=== PATIENT | male | born 1945 | race Caucasian/White ===

== ENCOUNTER 2017-05-13 16:41 | Inpatient (IN) ==
--- NOTE | 2017-05-13 16:55 | Emergency Department Note ---
Disposition Clinical Impression: Abdominal pain Qualifiers: Abdominal location: periumbilical Qualified Code(s): R10.33 - Periumbilical pain Disposition: Still a Patient Condition: Good [facility] [[facility]] - Forms: ED Satisfaction Letter, Work/School Release Time of Disposition: 19:08 Abdominal Pain HPI - General Chief Complaint: ED Abdominal Pain Stated Complaint: N/V/D Time Seen by Provider: 05/13/17 16:44 Source: patient, EMS Mode of arrival: EMS Limitations: no limitations Nursing Notes Reviewed: Yes Vital Signs Reviewed: Yes - History of Present Illness HPI Narrative: 72-year-old male history of coronary artery disease, stent on Plavix, hyperlipidemia, hypertension, history of diverticulitis who presents to the ER from the [facility] due to concern for possible ileus versus obstruction. Patient reports that he was treated for diverticulitis roughly 2-1/2 weeks ago. Reports that he had pain on the left side as well as diarrhea. He had a CT at that time demonstrating diverticulitis. He reports that he was on antibiotics and continued and finished a ten-day course with improvement of his symptoms. Reports on Monday he started developing diarrhea again as well as central abdominal pain. States since this time that he has had vomiting with food aversion. Reports that he only throws up when he tries to eat. Denies any fevers, chest pain, shortness of breath. He reports no bowel movement today after previously having diarrhea. No other complaints. Pt Subjective Complaint: abdominal pain Onset (ago): day(s) Consistency: constant Location: periumbilical Pain Scale: 0 Radiation: none Migration to: no migration Improves with: nothing Worsens with: nothing Associated symptoms: Reports: nausea, vomiting, diarrhea. Denies: fever, dysuria, hematuria Treatments prior to arrival: none - Related Data Allergies Allergy/AdvReac Type Severity Reaction Status Date / Time tree nut Allergy Anaphylaxis Verified 05/13/17 16:42 All systems ED: reviewed and negative except as stated. Constitutional: Denies: fever Gastrointestinal: Reports: abdominal pain, nausea, vomiting, diarrhea. Denies: constipation Genitourinary: Denies: dysuria, hematuria Abdominal Pain PMH - Past Medical History Medical history: Reports: coronary artery disease, GERD, hyperlipidemia, hypertension, myocardial infarction, thyroid disease, TIA Male Surgical History: Reports: angioplasty/stent, cataract, cholecystectomy Psychiatric history: Reports: no psych history - Social History Smoking status: Former smoker Alcohol use: Reports: occasionally Drug use: Reports: none Physical Exam - General Limitations: no limitations General appearance: alert, in no apparent distress - Head Head exam: atraumatic - Eye Eye exam: Present: normal appearance - ENT ENT exam: normal exam - Neck Neck exam: Present: normal inspection - Chest Chest inspection: Present: normal inspection, symmetric chest wall rise - Respiratory Respiratory exam: Present: normal lung sounds bilaterally - Cardiovascular Cardiovascular exam: Present: regular rate, normal rhythm, normal heart sounds - Abdominal Exam Abdominal exam: Present: soft, tenderness (Mild periumbilical tenderness), distention. Absent: guarding, rigidity - Extremities Exam Extremities exam: Present: normal inspection, full ROM - Expanded Upper Extremity Exam Shoulder exam: Present: normal inspection, full ROM Arm exam: Present: normal inspection, full ROM Elbow exam: Present: normal inspection, full ROM Forearm/Wrist exam: Present: normal inspection, full ROM Hand exam: Present: normal inspection, full ROM - Expanded Lower Extremity Exam Hip/Pelvis exam: Present: normal inspection, full ROM Upper leg exam: Present: normal inspection, full ROM Knee exam: Present: normal inspection, full ROM Lower leg exam: Present: normal inspection, full ROM Ankle exam: Present: normal inspection, full ROM Foot/toe exam: Present: normal inspection, full ROM - Skin Skin exam: Present: warm, dry Course Course Narrative: Patient seen and examined. I reviewed his CT report from the previous facility which was interpreted as "nonspecific mild dilation of the fluid-filled small bowel loop in the right lower abdomen. No transition point or findings to suggest obstruction. Fluid-filled small bowel and colon, raising the possibility of enteritis/diarrheal illness. Mild colonic diverticulosis" we will repeat labs here, given IV fluids and reassess. Vital Signs Temperature 98.6 F 05/13/17 16:44 Pulse Rate 88 05/13/17 16:44 Respiratory Rate 18 05/13/17 16:44 Blood Pressure 127/111 05/13/17 16:44 O2 Sat by Pulse Oximetry 93 05/13/17 16:44 Temperature 98.6 F 05/13/17 16:44 Pulse Rate 100 05/13/17 18:45 Respiratory Rate 18 05/13/17 18:45 Blood Pressure 120/78 05/13/17 18:45 O2 Sat by Pulse Oximetry 94 05/13/17 18:45 Oxygen Delivery Oxygen Delivery Room Air Abdominal Pain - MDM Narrative Medical decision making narrative: 72-year-old male presents to the ER from the [facility] due to concern for obstruction. Recent treatment of diverticulitis 2-1/2 weeks ago. Reports his symptoms improved. He started having pain again on Monday. Reports multiple episodes of vomiting whenever he tries to eat anything. States he was having diarrhea but no bowel movement since yesterday now. His abdomen is distended on exam without peritoneal features. He had a noncontrast CT scan at the [facility] with concern for potential obstruction versus viral ileus. Labs repeated here. We will repeat the CT with oral contrast. She signed out the compliance consultant pending imaging results. - Lab Data Lab results reviewed: Yes I reviewed the patient's lab results. Result diagrams: 05/13/17 16:52 05/13/17 16:52 Lab Results 05/13/17 05/13/17 05/13/17 Range/Units 16:52 16:52 16:52 WBC 7.2 (4.3-11.1) K/mcL RBC 4.66 (4.19-5.50) M/mcL Hgb 14.1 (12.9-16.9) g/dL Hct 43.3 (37.5-50.1) % MCV 92.9 (83.0-100.0) fL MCH 30.3 (28.0-33.3) pg MCHC 32.6 (31.6-35.5) g/dL RDW 12.9 (11.5-14.5) % Plt Count 183 (140-400) K/mcL MPV 11.0 (9.4-12.4) fL Immature Gran % 0.1 (0-4) % Seg Neutrophils % 64.1 % Lymphocytes % 15.4 % Monocytes % 17.6 % Eosinophils % 2.5 % Basophils % 0.3 % Neutrophils # 4.6 (1.6-8.9) K/mcL Lymphocytes # 1.1 (0.6-4.6) K/mcL Monocytes # 1.3 (0.0-1.3) K/mcL Eosinophils # 0.2 (0.0-0.6) K/mcL Basophils # 0.0 (0.0-0.2) K/mcL PT 12.7 H (9.4-12.1) Seconds INR 1.2 Sodium 139 (136-145) mEq/L Potassium 4.1 (3.5-5.1) mEq/L Chloride 109 H (98-107) mEq/L Carbon Dioxide 23 (23-29) mEq/L BUN 23 (8-23) mg/dL Creatinine 1.44 H (0.70-1.30) mg/dL Est GFR ( Amer) 58 L (> 60) Est GFR (Non-Af Amer) 48 L (> 60) BUN/Creatinine Ratio 16 (6-26) Glucose 119 H (70-105) mg/dL Calculated Osmolality 293 (280-300) Calcium 9.3 (8.6-10.3) mg/dL Total Bilirubin 1.2 H (0.3-1.0) mg/dL Direct Bilirubin 0.2 (0.0-0.2) mg/dL Indirect Bilirubin 1.0 (0.0-1.2) mg/dL AST 12 L (13-39) Units/L ALT 17 (7-52) Units/L Alkaline Phosphatase 57 (34-104) Units/L Serum Total Protein 6.4 (6.4-8.9) g/dL Albumin 3.8 (3.5-5.7) g/dL Globulin 2.6 (2.4-3.5) g/dL Albumin/Globulin Ratio 1.5 (1.1-2.2) Lipase 10 L (11-82) Units/L Attestation Statement - Attestation Attestation: I, Juan Pablo Samuel DO, examined this patient [id number] and my medical decision-making was reviewed with Dr. Murray Kraft, Resident Physician. I agree with the documented findings, disposition and treatment plan as described except to the extent set forth below. Please see my progress notes for details. 72-year-old male presents to emergency room for evaluation of possible ileus. Patient seen at the outside hospital for similar symptoms today. He was recently diagnosed with diverticulitis and treated symptomatically at home with antibiotics. The last several days patient still had persistent abdominal discomfort. Last 24 hours he has noticed significant nausea and vomiting and inability to tolerate by mouth food. Every time he eats E follicular cysts are. Patient's abdomen is slightly distended. He has had diarrhea up to the last 12+ hours. He has not had any bowel or gas sinceexam this morning. Patient denies any other significant medical issues at this time. No new medications or. Patient has not had any trauma or injury otherwise. Currently denying fevers chills chest pain shortness of breath headache or vision change. He has had intermittent nausea vomiting and diarrhea. CT imaging and labs are from outside hospital but they were repeated here in our emergency room. Lungs are clear heart is regular. Patient moves all portion is not has no other acute pathology except for some mild abdominal discomfort and distention. CT with oral contrast will be completed here in our emergency room and then disposition will be determined. Patient otherwise rested comfortably in the bed requiring no pain medication. See detailed documentation of physical exam, medical intervention, medical decision-making and disposition of the resident physician's note 1900 Patient is still waiting for CT imaging to be resulted. Patient was signed out to the nighttime physician Dr. Mercado. We will complete the course of care
[2017-05-13 17:00] LABS: Basophils % 0.3 %; Eosinophils # 0.2 K/mcL (0.0-0.6); Eosinophils % 2.5 %; Hematocrit 43.3 % (37.5-50.1); Hemoglobin 14.1 g/dL (12.9-16.9); Immature Granulocytes % 0.1 % (0-4); Lymphocytes # 1.1 K/mcL (0.6-4.6); Lymphocytes % 15.4 %; Mean Corpuscular HGB Conc 32.6 g/dL (31.6-35.5); Mean Corpuscular Hemoglobin 30.3 pg (28.0-33.3); Mean Corpuscular Volume 92.9 fL (83.0-100.0); Monocytes # 1.3 K/mcL (0.0-1.3); Monocytes % 17.6 %; Neutrophils # 4.6 K/mcL (1.6-8.9); Platelet Count 183 K/mcL (140-400); Red Blood Count 4.66 M/mcL (4.19-5.50); Red Cell Distribution Width 12.9 % (11.5-14.5); Segmented Neutrophils % 64.1 %
[2017-05-13 17:05] LABS: INR 1.2; Prothrombin Time 12.7 Seconds (9.4-12.1)
[2017-05-13 17:15] LABS: Albumin 3.8 g/dL (3.5-5.7); Albumin/Globulin Ratio 1.5 (1.1-2.2); Bilirubin,Direct 0.2 mg/dL (0.0-0.2); Bilirubin,Total 1.2 mg/dL (0.3-1.0); Calcium 9.3 mg/dL (8.6-10.3); Globulin 2.6 g/dL (2.4-3.5); Potassium 4.1 mEq/L (3.5-5.1); Total Protein 6.4 g/dL (6.4-8.9)
[2017-05-13] MEDS ORDERED: Ondansetron 4 MG/2 ML VIAL IVP ONE (17:33)
[2017-05-13] MEDS ORDERED: *HR* Promethazine 25 MG/ML VIAL IVP ONE (18:47)
[2017-05-13] MEDS ORDERED: 0.9 % Sodium Chloride 500 ML IVC ONE (19:39)
--- NOTE | 2017-05-13 21:04 | Emergency Department Note ---
Disposition Clinical Impression: Colitis, ABDIRIZAK (acute kidney injury) Abdominal pain Qualifiers: Abdominal location: periumbilical Qualified Code(s): R10.33 - Periumbilical pain Intractable nausea and vomiting Qualifiers: Vomiting type: unspecified Qualified Code(s): R11.2 - Nausea with vomiting, unspecified Disposition: Admitted As Inpatient Condition: Fair Time of Disposition: 21:04 Abdominal Pain HPI - General Chief Complaint: ED Abdominal Pain Stated Complaint: N/V/D Time Seen by Provider: 05/13/17 16:44 Source: patient, EMS Mode of arrival: EMS Nursing Notes Reviewed: Yes Vital Signs Reviewed: Yes - History of Present Illness Pt Subjective Complaint: abdominal pain Location: periumbilical Pain Scale: 0 Migration to: no migration Improves with: nothing Worsens with: nothing Associated symptoms: Reports: nausea, vomiting, diarrhea. Denies: fever, dysuria, hematuria - Related Data Allergies Allergy/AdvReac Type Severity Reaction Status Date / Time tree nut Allergy Anaphylaxis Verified 05/13/17 16:42 Constitutional: Denies: fever Gastrointestinal: Reports: abdominal pain, nausea, vomiting, diarrhea. Denies: constipation Genitourinary: Denies: dysuria, hematuria Abdominal Pain PMH - Past Medical History Medical history: Reports: coronary artery disease, GERD, hyperlipidemia, hypertension, myocardial infarction, thyroid disease, TIA Male Surgical History: Reports: angioplasty/stent, cataract, cholecystectomy Psychiatric history: Reports: no psych history - Social History Smoking status: Former smoker Alcohol use: Reports: occasionally Drug use: Reports: none Physical Exam - General Limitations: no limitations General appearance: alert, in no apparent distress Course Course Narrative: Flea care was signed out from Dr. Samuel and Dr. Kraft please see their documentation for history physical examination additional plan, patient is 72- year-old male with colitis, CT scan with IV and oral contrast which she was able to partially tolerate shows demonstration of liquid stool throughout the colon colitis but no evidence of diverticulitis or surgical pathology perforation or small bowel obstruction, given the patient's age and comorbidities, CAD, 2 days decreased by mouth intake, acute renal insufficiency , and intractable nausea and vomiting the care will be admission to the hospital Dr. Lara for rehydration, and diarrheal illness. Vital Signs Temperature 98.6 F 05/13/17 16:44 Pulse Rate 88 05/13/17 16:44 Respiratory Rate 18 05/13/17 16:44 Blood Pressure 127/111 05/13/17 16:44 O2 Sat by Pulse Oximetry 93 05/13/17 16:44 Temperature 98.6 F 05/13/17 16:44 Pulse Rate 100 05/13/17 18:45 Respiratory Rate 12 05/13/17 21:00 Blood Pressure 130/78 05/13/17 21:00 O2 Sat by Pulse Oximetry 94 05/13/17 18:45 Oxygen Delivery Oxygen Delivery Nasal Cannula Abdominal Pain - Differential Diagnosis Differential Diagnosis: Likely: abdominal pain non-specific, acute appendicitis , diverticulitis - Medical Records Medical records reviewed: Yes I reviewed the patient's medical records. - Lab Data Lab results reviewed: Yes I reviewed the patient's lab results. Result diagrams: 05/13/17 16:52 05/13/17 16:52 Lab Results 05/13/17 05/13/17 05/13/17 Range/Units 16:52 16:52 16:52 WBC 7.2 (4.3-11.1) K/mcL RBC 4.66 (4.19-5.50) M/mcL Hgb 14.1 (12.9-16.9) g/dL Hct 43.3 (37.5-50.1) % MCV 92.9 (83.0-100.0) fL MCH 30.3 (28.0-33.3) pg MCHC 32.6 (31.6-35.5) g/dL RDW 12.9 (11.5-14.5) % Plt Count 183 (140-400) K/mcL MPV 11.0 (9.4-12.4) fL Immature Gran % 0.1 (0-4) % Seg Neutrophils % 64.1 % Lymphocytes % 15.4 % Monocytes % 17.6 % Eosinophils % 2.5 % Basophils % 0.3 % Neutrophils # 4.6 (1.6-8.9) K/mcL Lymphocytes # 1.1 (0.6-4.6) K/mcL Monocytes # 1.3 (0.0-1.3) K/mcL Eosinophils # 0.2 (0.0-0.6) K/mcL Basophils # 0.0 (0.0-0.2) K/mcL PT 12.7 H (9.4-12.1) Seconds INR 1.2 Sodium 139 (136-145) mEq/L Potassium 4.1 (3.5-5.1) mEq/L Chloride 109 H (98-107) mEq/L Carbon Dioxide 23 (23-29) mEq/L BUN 23 (8-23) mg/dL Creatinine 1.44 H (0.70-1.30) mg/dL Est GFR ( Amer) 58 L (> 60) Est GFR (Non-Af Amer) 48 L (> 60) BUN/Creatinine Ratio 16 (6-26) Glucose 119 H (70-105) mg/dL Calculated Osmolality 293 (280-300) Calcium 9.3 (8.6-10.3) mg/dL Total Bilirubin 1.2 H (0.3-1.0) mg/dL Direct Bilirubin 0.2 (0.0-0.2) mg/dL Indirect Bilirubin 1.0 (0.0-1.2) mg/dL AST 12 L (13-39) Units/L ALT 17 (7-52) Units/L Alkaline Phosphatase 57 (34-104) Units/L Serum Total Protein 6.4 (6.4-8.9) g/dL Albumin 3.8 (3.5-5.7) g/dL Globulin 2.6 (2.4-3.5) g/dL Albumin/Globulin Ratio 1.5 (1.1-2.2) Lipase 10 L (11-82) Units/L - Radiology Data Radiology results reviewed: Yes I reviewed the patient's radiology results. Abdomen/Pelvis CT 05/13/17 19:00 IMPRESSION: 1. Liquefied material is seen throughout the colon. Fluid-filled nondilated loops of small bowel are also noted. Findings are suggestive of underlying diarrheal disease or enterocolitis. 2. No evidence of small bowel obstruction. 3. No evidence of acute appendicitis. 4. Benign-appearing bilateral renal cysts. 5. Small hiatal hernia. 6. Osteopenia. Age-indeterminate compression fractures of T10 and L2 vertebral bodies with approximate 25% loss of vertebral body height. 7. Nonspecific sclerosis in the left acetabulum could represent benign bone islands. D/ / 05/13/2017 19:37:58 Benedicto Hardy MD / nika Interpreting Provider: Benedicto Hardy MD Attestation Statement - Attestation Attestation: I, Neftaly Mercado MD, personally evaluated this patient and discussed their management with the resident physician. I reviewed the resident's note and agree with the documented findings, medical decision making, and plan of care. This patient was signed out at shift change from Dr. Kraft and Dr. Samuel. Please refer to their notes for complete details of the history and physical examination. Patient recently treated for diverticulitis and finished antibiotics last week. Presents complaining of 3 day history of diarrhea which she describes as yellow and watery. The diarrhea is not foul smelling and there has been no blood in the diarrhea. He also complains of some diffuse crampy abdominal pain as well as some nausea and vomiting. No fever. On examination patient is a well-developed obese elderly male in no acute distress. He is alert and oriented 3. There is no cyanosis or diaphoresis. Breath sounds are equal bilaterally. Heart regular. Abdomen soft with increased bowel sounds. Mild diffuse tenderness with no guarding or rebound tenderness. Labs reviewed. CT shows enterocolitis but no obstruction. The hospitalist, Dr. Lara, was consulted and accepted admission of the patient.
[2017-05-13] MEDS ORDERED: *HR* Promethazine 25 MG/ML VIAL IVP PRN (23:34)
[2017-05-13] MEDS ORDERED: Naloxone 0.4 MG/ML INJ IVP PRN (23:34)
[2017-05-13] MEDS ORDERED: Ondansetron 4 MG/2 ML VIAL IVP PRN (23:34)
--- NOTE | 2017-05-13 23:43 | Internal Med History&Physical ---
Date of Encounter: 05/14/17 Time of Encounter: 23:39 Assessment and Plan (1) Colitis Current visit: Yes Status: Acute Enterocolitis seen on CT exam Patient [facility] and [facility] He currently is not having severe abdominal pain associated with this colitis, stable vitals I will maintain an nothing by mouth diet at this time Start IV Cipro and Flagyl Zofran and Phenergan for nausea as needed (2) Intractable nausea and vomiting Current visit: Yes Status: Acute Intractable nausea and vomiting, likely secondary to colitis Although I was initially concerned about the possibility of dehydration due to the patient's ABDIRIZAK, on clinical exam the patient does appear volume overloaded, and does have pulmonary congestion on chest x-ray I have opted to withhold maintenance fluid at this time to avoid the possibility of worsening hydration status I will provide Zofran and Phenergan as needed for nausea Qualifiers: Vomiting type: unspecified Qualified Code(s): R11.2 - Nausea with vomiting , unspecified (3) ABDIRIZAK (acute kidney injury) Current visit: Yes Status: Acute Elevated creatinine unknown baseline, ABDIRIZAK versus CKD Appears volume overloaded at this time Avoid IV hydration, reassess in the morning Avoid nephrotoxic agents (4) Atelectasis of both lungs Current visit: Yes Status: Acute Currently respiratory status is appropriate Likely secondary to poor inspiratory effort in setting of abdominal pain I will continue to monitor for possibility of emerging pneumonia (5) CAD (coronary artery disease) Current visit: No Status: Chronic CAD s/p stents Patient currently has no chest pain, however appears to have fluid overload and vascular congestion TTE in the AM Qualifiers: Coronary Disease-Associated Artery/Lesion type: [place] artery [place] vs. transplanted heart: [place] heart Associated angina: without angina Qualified Code(s): I25.10 - Atherosclerotic heart disease of [place] coronary artery without angina pectoris (6) HTN (hypertension) Current visit: Yes Status: Acute Continue home meds Qualifiers: Hypertension type: essential hypertension Qualified Code(s): I10 - Essential (primary) hypertension (7) HLD (hyperlipidemia) Current visit: Yes Status: Acute Continue statin Qualifiers: Hyperlipidemia type: unspecified Qualified Code(s): E78.5 - Hyperlipidemia , unspecified (8) DVT prophylaxis Current visit: Yes Status: Acute sq heparin Internal Medicine - H&P: HPI Chief complaint: Nausea and vomiting Admitted From: Emergency Dept Plans for Post Hospital Care: Home History of present illness: Mr. Gill is a 72 year old male with history of CAD status post stents, hyperlipidemia, hypertension, diverticulitis who presents to the ED from [facility] due to abdominal pain, nausea and vomiting. The patient was seen and treated for acute diverticulitis approximately 2.5 weeks ago at the [facility]. He says that he did 10 day course of 2 antibiotics which she does not know the name to and he seemed to get better. Then at approximately 9 PM on this past Monday the patient started developing severe watery diarrhea that was explosive in nature. He said he had about 8-16 episodes of this per night. He denies any blood, and since there is a yellow mucousy appearance. Then last night he began vomiting as well. He said that this is worsened by food or water. He has not been able to keep any food or water down. He says that there is been no blood in his vomit or his diarrhea. He also denies any fevers , chills, sweats. He does say that he feels that his abdomen has been distended and he has been extremely gassy. Although he is not having consistent or severe pain, he says that when he does have pain it is primarily located in his upper left and lower left abdomen. Nothing seems to help or make this issue any worse. Significantly, the patient does admit that he had a colonoscopy in the middle of this past March at which time they removed 2 polyps. He says that he feels like most this problem started around that time. He has not had any chest pain, shortness of breath. He denies any other acute complaints. Past Med Surg Social Fam HX - Past Medical History Medical history: coronary artery disease, GERD, hyperlipidemia, hypertension, myocardial infarction, thyroid disease, TIA Psychiatric history: no psych history - Social History Smoking Status: Former smoker Smokeless Tobacco Status: No Alcohol use: occasionally Drug use: none Internal Medicine - H&P: Meds Bicalutamide 50 PO DAILY 05/14/17 [History] 3 Allergy/AdvReac Type Severity Reaction Status Date / Time tree nut Allergy Anaphylaxis Verified 05/13/17 16:42 All Systems PM: A 10-system review of systems was performed and is negative for pertinent findings except as documented above in the HPI. Review of systems: CONSTITUTIONAL: No weight loss, fever, chills, weakness or fatigue. HEENT: Eyes: No visual loss, blurred vision, double vision or yellow sclerae. SKIN: No rash or itching. CARDIOVASCULAR: No chest pain, chest pressure or chest discomfort. No palpitations or edema. RESPIRATORY: No shortness of breath, cough or sputum. GASTROINTESTINAL: Admits to abdominal pain, distention, nausea vomiting diarrhea GENITOURINARY: Burning on urination. NEUROLOGICAL: No headache, dizziness, syncope, paralysis, ataxia, numbness or tingling in the extremities. No change in bowel or bladder control. MUSCULOSKELETAL: No muscle, back pain, joint pain or stiffness. HEMATOLOGIC: No anemia, bleeding or bruising. LYMPHATICS: No enlarged nodes. No history of splenectomy. PSYCHIATRIC: No history of depression or anxiety. ENDOCRINOLOGIC: No reports of sweating, cold or heat intolerance. No polyuria or polydipsia. - Constitutional Vitals: Temp Pulse Resp BP Pulse Ox 98.8 F 84 16 110/71 95 05/13/17 21:23 05/13/17 21:23 05/13/17 21:23 05/13/17 21:23 05/13/17 21:23 Exam: Gen.: Vitals noted. No acute distress. AAOx3 HEENT: PERRL/EOMI, oropharynx clear, Normocephalic, atraumatic Neck: Supple. No adenopathy. Cardiac: RRR, no murmur, +S1/S2 Pulmonary: Diffuse bibasilar crackles on inspiration, no wheezes Abdomen: Moderately distended, no rigidity, no rebound tenderness or generalized tenderness to palpation Back: Nontender throughout. MSK: ROM intact, no joint swelling noted Extremities: no BLE edema, nontender calf, no cyanosis or clubbing Neuro: A&Ox3, moves all extremities, no focal deficits Psych: Appropriate mood and behavior Internal Med - H&P Results - Labs CBC & Chem 7: 05/13/17 16:52 05/13/17 16:52
[2017-05-13] MEDS ORDERED: 0.9 % Sodium Chloride 1,000 ML IVC SCH (23:45)
[2017-05-14 05:50] LABS: Hematocrit 40.3 % (37.5-50.1); Mean Corpuscular HGB Conc 32.3 g/dL (31.6-35.5); Mean Corpuscular Hemoglobin 30.2 pg (28.0-33.3); Mean Corpuscular Volume 93.5 fL (83.0-100.0); Mean Platelet Volume 11.9 fL (9.4-12.4); Platelet Count 150 K/mcL (140-400); Red Blood Count 4.31 M/mcL (4.19-5.50); Red Cell Distribution Width 13.1 % (11.5-14.5)
[2017-05-14 06:07] LABS: BUN/Creatinine Ratio 16 (6-26); Blood Urea Nitrogen 20 mg/dL (8-23); Calcium 8.8 mg/dL (8.6-10.3); Carbon Dioxide 22 mEq/L (23-29); Chloride 112 mEq/L (98-107); Glucose 107 mg/dL (70-105); Osmolality,Calculated 295 (280-300); Potassium 3.8 mEq/L (3.5-5.1); Sodium 141 mEq/L (136-145); eGFR For African Americans > 60 (> 60); eGFR For Non-African Americans 54 (> 60)
[2017-05-14] MEDS: *HR* Heparin 5,000 UNIT/ML VIAL SQ SCH ×2 (06:19→17:12)
[2017-05-14] MEDS: MetroNIDAZOLE 500 MG/100 ML 500 MG/100 ML BAG IVPB SCH ×3 (10:12→23:43)
[2017-05-14] MEDS ORDERED: Bicalutamide 50 MG TABLET PO SCH (11:30)
--- NOTE | 2017-05-14 11:34 | Event Note ---
Date of Encounter: 05/14/17 Time of Encounter: 11:33 Patient was seen and examined. He was admitted overnight with diarrhea. Tested positive for C. difficile. Currently on Cipro and Flagyl. We will stop Cipro. Keep him on Flagyl. Continue with IV fluids. His blood pressure is marginal. Hold his beta lopez. He had some ABDIRIZAK as well on admission which is improving with IV fluids. We will continue IV fluids and decrease the rate to 100 mL an hour. He does have a history of coronary disease and I worry about volume overload.
[2017-05-14] MEDS: 0.9 % Sodium Chloride 1,000 ML IVC SCH ×2 (12:24→23:40)
[2017-05-14] MEDS: Aspirin Enteric Coated 81 MG Tablet PO SCH (12:27)
[2017-05-15 05:02] LABS: Basophils % 0.2 %; Eosinophils # 0.4 K/mcL (0.0-0.6); Eosinophils % 7.2 %; Hematocrit 36.3 % (37.5-50.1); Hemoglobin 11.5 g/dL (12.9-16.9); Immature Granulocytes % 0.4 % (0-4); Lymphocytes # 1.4 K/mcL (0.6-4.6); Lymphocytes % 26.3 %; Mean Corpuscular HGB Conc 31.7 g/dL (31.6-35.5); Mean Corpuscular Hemoglobin 29.7 pg (28.0-33.3); Mean Corpuscular Volume 93.8 fL (83.0-100.0); Mean Platelet Volume 11.8 fL (9.4-12.4); Monocytes # 0.9 K/mcL (0.0-1.3); Monocytes % 15.8 %; Neutrophils # 2.7 K/mcL (1.6-8.9); Platelet Count 144 K/mcL (140-400); Red Blood Count 3.87 M/mcL (4.19-5.50); Segmented Neutrophils % 50.1 %
[2017-05-15 05:22] LABS: BUN/Creatinine Ratio 12 (6-26); Blood Urea Nitrogen 15 mg/dL (8-23); Calcium 8.3 mg/dL (8.6-10.3); Carbon Dioxide 26 mEq/L (23-29); Chloride 110 mEq/L (98-107); Glucose 92 mg/dL (70-105); Magnesium 1.6 mg/dL (1.6-2.6); Osmolality,Calculated 290 (280-300); Potassium 3.8 mEq/L (3.5-5.1); Sodium 140 mEq/L (136-145); eGFR For African Americans > 60 (> 60); eGFR For Non-African Americans 55 (> 60)
[2017-05-15] MEDS: *HR* Heparin 5,000 UNIT/ML VIAL SQ SCH (05:46)
[2017-05-15 07:21] VITALS: BP 110/72
[2017-05-15] MEDS ORDERED: Magnesium Oxide 400 MG TABLET PO ONE (07:44)
--- NOTE | 2017-05-15 07:52 | Discharge Summary ---
Date of Encounter: 05/15/17 Time of Encounter: 07:49 - Discharge Diagnosis (1) C. difficile colitis Priority: Primary Status: Acute (2) Intractable nausea and vomiting Priority: Primary Status: Acute Qualifiers: Vomiting type: unspecified Qualified Code(s): R11.2 - Nausea with vomiting , unspecified (3) HTN (hypertension) Priority: Secondary Status: Acute Qualifiers: Hypertension type: essential hypertension Qualified Code(s): I10 - Essential (primary) hypertension (4) CAD (coronary artery disease) Priority: Secondary Status: Chronic Qualifiers: Coronary Disease-Associated Artery/Lesion type: [place] artery [place] vs. transplanted heart: [place] heart Associated angina: without angina Qualified Code(s): I25.10 - Atherosclerotic heart disease of [place] coronary artery without angina pectoris (5) HLD (hyperlipidemia) Priority: Secondary Status: Acute Qualifiers: Hyperlipidemia type: unspecified Qualified Code(s): E78.5 - Hyperlipidemia , unspecified - Discharge Medications Prescriptions: metroNIDAZOLE [Flagyl] 500 mg PO TID #24 tablet Home Medications: Aspirin [Lo-Dose Aspirin EC] 81 mg PO DAILY 05/14/17 [History] Cholecalciferol (Vitamin D3) [Vitamin D3] 2,000 unit PO DAILY 05/14/17 [History] Ciprofloxacin [Cipro] 500 mg PO BID 05/14/17 [History] Clopidogrel [Plavix] 75 mg PO DAILY 05/14/17 [History] Leuprolide Acetate 1 mg SQ [id number] 05/14/17 [History] Levothyroxine [Synthroid] 100 mcg PO DAILY 05/14/17 [History] Metoprolol Tartrate [Lopressor] 50 mg PO BID 05/14/17 [History] Omeprazole 20 mg PO DAILY 05/14/17 [History] Simvastatin [Zocor] 40 mg PO HS 05/14/17 [History] Terazosin HCl 2 mg PO HS 05/14/17 [History] metroNIDAZOLE [Flagyl] 500 mg PO TID #24 tablet 05/15/17 [Rx] Allergies/Adverse Reactions: 3 Allergy/AdvReac Type Severity Reaction Status Date / Time tree nut Allergy Anaphylaxis Verified 05/13/17 16:42 Procedures/tests Complete & Pending: Procedures Performed prior 72 hours Category Date Time Status EV echocardiogram Routine Y 05/14/17 01:14 Completed Date of admission: 05/13/17 20:48 Primary care physician: PCP AROLDO - Patient Status Disposition: Home, Self-Care Overall status at discharge: patient is progressing back to baseline - Discharge Instructions Instructions: Metronidazole (By mouth), Clostridium Difficile Infection (GEN) Follow Up With: AROLDO,PCP [Primary Care Provider] - 05/18/17 11:00 am Forms: ED Satisfaction Letter, Work/School Release - Diet and Activity Activity: increase activity as tolerated Diet: low salt diet Hospital course: Mr. Gill is a 72 year old male with history of CAD status post stents, hyperlipidemia, hypertension, diverticulitis who presents to the ED from [facility] due to abdominal pain, nausea and vomiting. The patient was seen and treated for acute diverticulitis approximately 2.[address] he suddenly started having significant watery diarrhea. He had about 8-16 loose stools episodes in 1 day. In the emergency department had a CT abdomen and pelvis which showed signs of enterocolitis. The patient was admitted to the hospitalist service and tested positive for C. difficile. We put the patient on IV Flagyl. He did well and on day of discharge she had no loose stools for the night prior and the morning of. He never had an elevation in his white count. He was hemodynamically stable throughout his stay. He tolerated diet. He was discharged to finish ten-day course of Flagyl. Follow up with his primary care physician. - Time Spent with Patient Total time spent providing and/or coordinating discharge services: Greater than 30 minutes - Constitutional Vitals: Temp Pulse Resp BP Pulse Ox 98.0 F 68 16 110/72 93 05/15/17 07:13 05/15/17 07:13 05/15/17 07:13 05/15/17 07:13 05/15/17 07:13 Exam: GEN: NAD CVS: RRR. S1, S2, No m/r/g RESP: CTAB ABD: Soft, NT, ND, +BS EXT: No edema. 2+ DP. No rashes NEURO: Nonfocal
[2017-05-15] MEDS: MetroNIDAZOLE 500 MG/100 ML 500 MG/100 ML BAG IVPB SCH (08:25)
[2017-05-15] MEDS: Aspirin Enteric Coated 81 MG Tablet PO SCH (08:26)
== END 2017-05-15 10:44 | disposition home or self-care (01) | DRG 372 ==
LOC: EMEROO 16:41 → 2ANU 16:41 → OBSVTOIN 20:48 → 2ANU 21:05
PROVIDERS: ADMIT Internal Medicine; ATTEND Internal Medicine

== ENCOUNTER 2019-01-09 15:46 | Observation (INO) ==
--- NOTE | 2019-01-09 16:06 | Emergency Department Note ---
Disposition Clinical Impression: Acute appendicitis Qualifiers: Acute appendicitis type: with localized peritonitis Appendicitis gangrene presence: without gangrene Appendicitis perforation presence: without perforation Appendicitis abscess presence: without abscess Qualified Code(s): K35.30 - Acute appendicitis with localized peritonitis, without perforation or gangrene Disposition: Admitted As Inpatient Condition: Good [facility]errals: [facility] [Primary Care Provider] - Forms: ED Satisfaction Letter, Work/School Release Time of Disposition: 16:30 Abdominal Pain HPI - General Chief Complaint: ED Abdominal Pain Stated Complaint: abdominal pain Time Seen by Provider: 01/09/19 15:47 Source: patient, EMS Mode of arrival: EMS Limitations: no limitations Nursing Notes Reviewed: Yes Vital Signs Reviewed: Yes - History of Present Illness HPI Narrative: 73-year-old male with past medical history of hypertension hyperlipidemia metastatic prostate cancer for which she is undergoing radiation and chemotherapy, CAD, 3 stents, who presents to the emergency department from the [facility] for complaints of abdominal pain. He states that his abdominal pain began yesterday and has gotten progressively worse. Patient presented to the [facility] where he was diagnosed with appendicitis by a CAT scan and sent here for further workup treatment and surgery. Patient reports that he is taking Plavix. His coagulation studies were not checked the PA nor did they get an EKG. Pain Scale: 5 - Related Data Home Medications Medication Instructions Recorded Confirmed Cholecalciferol (Vitamin D3) 2,000 unit PO DAILY 05/14/17 10/19/18 [Vitamin D3] Clopidogrel [Plavix] 75 mg PO DAILY 05/14/17 10/19/18 Levothyroxine [Synthroid] 100 mcg PO DAILY 05/14/17 10/19/18 Metoprolol Tartrate [Lopressor] 50 mg PO BID 05/14/17 10/19/18 Simvastatin [Zocor] 80 mg PO HS 05/14/17 10/19/18 Bicalutamide [Casodex] 50 mg PO DAILY 06/13/18 10/19/18 Lisinopril [Zestril] 20 mg PO DAILY 06/13/18 10/19/18 Acetaminophen [Tylenol] 650 mg PO Q6HR 07/17/18 10/19/18 Previous Rx's Medication Instructions Recorded Ondansetron HCl 8 mg PO Q8H PRN #45 tablet 07/11/18 Prochlorperazine Maleate 10 mg PO Q8HR PRN #90 tablet 07/11/18 [Compazine] dexAMETHasone [Decadron] 4 mg PO BID PRN #30 tab 07/11/18 predniSONE [PredniSONE] 10 mg PO DAILY #60 tablet 07/11/18 Tamsulosin [Flomax] 0.4 mg PO DAILY #30 cap.er.24h 07/17/18 Loperamide HCl [Imodium A-D] 2 mg PO Q4H PRN #90 capsule 08/17/18 Omeprazole [PriLOSEC] 40 mg PO DAILY #30 cap 08/17/18 Allergies Allergy/AdvReac Type Severity Reaction Status Date / Time tree nut Allergy Anaphylaxis Verified 01/09/19 15:57 Review of Systems: In addition to that documented in the HPI above, the additional ROS was obtained: Constitutional: Denies fevers Reports chills Eyes: Denies vision changes ENMT: Denies sore throat CV: Denies chest pain Resp: Denies SOB GI: Denies vomiting Reports nausea and diarrhea MSK: Denies recent trauma Skin: Denies new rashes Neuro: Denies new numbness or tingling or weakness Abdominal Pain PMH - Past Medical History Medical history: Reports: cancer, coronary artery disease, GERD, hyperlipidemia, hypertension, myocardial infarction, thyroid disease, TIA Male Surgical History: Reports: angioplasty/stent, cataract, cholecystectomy Psychiatric history: Reports: no psych history - Social History Smoking status: Former smoker Alcohol use: Reports: heavy Drug use: Reports: none Physical Exam General: A&O x 3. No acute distress. Well developed, well nourished. Head: atraumatic, normocephalic. ENT: No conjunctival injection, no scleral icterus. PERRLA. EOMI. Oropharynx non- erythematous. mucous membranes moist. Neuro: No focal deficits, no speech deficit, no facial droop, mentating well. BUE/BLE Str 5/5. Pulm: Lungs CTAB A/P. No wheezes, rales, ronchi. Cardio: RRR no m/r/g. Chest not tender to palpation. Abd: Soft, non-distended. Normoactive bowel sounds. Tender to palpation in suprapubic area and RLQ. Voluntary guarding in RLQ. Non rigid. Pain in RLQ with palpation of suprapubic area. Extremities: Radial pulses 2+ lakia, dorsalis pedis/posterior tibialis 2+ lakia. No LE edema. No cyanosis, clubbing. Skin: warm, dry, intact. No rashes. Psych: Appropriate mood and affect. Answers questions appropriately. Cooperative with exam. - General General appearance: alert, in no apparent distress Course Vital Signs Temperature 99.1 F 01/09/19 15:52 Pulse Rate 74 01/09/19 15:52 Respiratory Rate 18 01/09/19 15:52 Blood Pressure 170/90 01/09/19 15:52 O2 Sat by Pulse Oximetry 98 01/09/19 15:52 Temperature 99.1 F 01/09/19 15:52 Pulse Rate 74 01/09/19 15:52 Respiratory Rate 18 01/09/19 15:52 Blood Pressure 170/90 01/09/19 15:52 O2 Sat by Pulse Oximetry 97 01/09/19 15:56 Oxygen Delivery Oxygen Delivery Room Air Abdominal Pain - MDM Narrative Medical decision making narrative: 73-year-old male with past medical history of CAD, metastatic prostate cancer that has been undergoing radiation with his last dose in November and has been taking oral chemotherapy medication that reports abdominal pain that began yesterday has been steadily getting worse. He reports his last meal was at 8 AM this morning when he had a piece of toast and some coffee. Patient was complaining of some nausea and some pain but is denying those 2 symptoms now and does not need anything for his nausea or his pain. Patient presented from the PA with a disc containing his CAT scan report which states there is some appendiceal swelling, and a small appendicolith is suspected near the base. Spoke with Dr. Downey from surgery who requested that we load this image into her system and that he would see the patient at bedside. Will obtain EKG and coagulation studies. Dr. Downey has agreed to take the patient to surgery. Patient denies needs at this time for any pain control or antiemetics. Patient was given an opportunity to ask questions about bedside and all of his concerns were addressed. Patient was advised not to take anything by mouth until seen by the surgeon. - Medical Records Medical records reviewed: Yes I reviewed the patient's medical records. - Lab Data Lab results reviewed: Yes I reviewed the patient's lab results. - Radiology Data Radiology results reviewed: Yes I reviewed the patient's radiology results. - EKG Data EKG attestation: Yes I reviewed and interpreted this EKG. EKG results narrative: Heart rate 75, rhythm atrial sinus, axis is normal. MT is less than 0.2, QRS 102, QTC 437. No ST segment elevation or depression. There is some T-wave inversion in lead V1 through V3. Previous EKG dated 03/07/2014 does not show flipped T waves in leads V2 and V3. Attestation Statement - Attestation Attestation: I, Sean Packer, examined this patient and my medical decision-making was reviewed with the CONDUIT BENDER/PA/Advanced Practice Nurse/Resident Physician. I agree with the documented findings, disposition and treatment plan as described except to the extent set forth below. 73-year-old male presents emergency Department with concerns of abdominal pain. Symptoms have been worsening over the past 24 hours. Pain is in the right lower quadrant is tender to palpation. CT at the PA shows acute appendicitis. The surgeon, Dr. Davis was consult. Regarding the patient's case and presentation who evaluated him in the emergency department. He will be taken to the OR for further care and evaluation.
[2019-01-09 16:56] LABS: INR 1.1
[2019-01-09 16:58] LABS: Activated Partial Thrombo Time 34.2 Seconds (26.0-36.0)
[2019-01-09] MEDS ORDERED: *HR* FentaNYL (PF) 100 MCG/2 ML VIAL ONE ×2 (17:26→17:44)
[2019-01-09] MEDS ORDERED: *HR* Propofol 200 MG/20 ML VIAL IVP ONE ×3 (17:26→19:39)
--- NOTE | 2019-01-09 17:26 | Anesthesia Evaluation PreOp ---
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: Denies Any Significant HX Other Medical History: Thyroid, GERD, Other (Prostate Cancer mets to spine, ribs, pelvis underwent RT) Anesthesia History: No Prior Anesthetic Complications Alcohol Use: heavy Drug use: none Medications and Allergies Cholecalciferol (Vitamin D3) [Vitamin D3] 2,000 unit PO DAILY 05/14/17 [History] Clopidogrel [Plavix] 75 mg PO DAILY 05/14/17 [History] Levothyroxine [Synthroid] 100 mcg PO DAILY 05/14/17 [History] Metoprolol Tartrate [Lopressor] 50 mg PO BID 05/14/17 [History] Simvastatin [Zocor] 80 mg PO HS 05/14/17 [History] Bicalutamide [Casodex] 50 mg PO DAILY 06/13/18 [History] Lisinopril [Zestril] 20 mg PO DAILY 06/13/18 [History] Ondansetron HCl 8 mg PO Q8H PRN #45 tablet 07/11/18 [Rx] Prochlorperazine Maleate [Compazine] 10 mg PO Q8HR PRN #90 tablet 07/11/18 [Rx] dexAMETHasone [Decadron] 4 mg PO BID PRN #30 tab 07/11/18 [Rx] predniSONE [PredniSONE] 10 mg PO DAILY #60 tablet 07/11/18 [Rx] Acetaminophen [Tylenol] 650 mg PO Q6HR 07/17/18 [History] Tamsulosin [Flomax] 0.4 mg PO DAILY #30 cap.er.24h 07/17/18 [Rx] Loperamide HCl [Imodium A-D] 2 mg PO Q4H PRN #90 capsule 08/17/18 [Rx] Omeprazole [PriLOSEC] 40 mg PO DAILY #30 cap 08/17/18 [Rx] Allergy/AdvReac Type Severity Reaction Status Date / Time tree nut Allergy Anaphylaxis Verified 01/09/19 15:57 - Meds/Allergy Pre-op Review Medications Reviewed: Yes Allergies Reviewed: Yes Beta Blockers on Current Med List: Yes (Metoprolol today 0830) Anesthesia Results - Labs Laboratory Tests 01/08/19 01/08/19 14:17 14:17 Hgb 13.7 Hct 42.1 Plt Count 198 Sodium 143 Potassium 4.1 BUN 20 Creatinine 1.11 - Imaging EKG: report reviewed (SR) Additional studies: ECHO 2018 EF 60%, mild pulm htn Anesthesia Exam Vital Signs/O2 Sat/Glucose, Most Current Temp Pulse Resp BP Pulse Ox 01/09/19 16:47 82 18 182/89 96 01/09/19 15:56 97 01/09/19 15:52 99.1 F 74 18 170/90 98 Height: 6'0 Weight: 259 lbs NPO (# of Hours): 0800 today toast Pain Scale: 0 - HEENT Pupil (Motor): Pupils equal, EOMI Mallampati: III Teeth: Normal Oral Opening: Less than or equal to 3 - ASSEMBLER SEMICONDUCTOR LOC: Oriented ASSEMBLER SEMICONDUCTOR Motor: Normal RUE, Normal LUE, Normal RLE, Normal LLE, Normal Face ASSEMBLER [employer]IC[employer]UCTOR Sensory: Normal: RUE, LUE, RLE, LLE, Face - Cardiac Rhythm: Regular Murmur: None JVD: No Carotid Bruit: No - Pulmonary Breath Sounds: bilateral Clear Respiratory Effort: Symmetrical Anesthesia Assess/Plan ASA Score: 3 (CAD HTN LOUISE Prostate Ca) Level of consciousness: Cooperative, Oriented Anesthetic Plan: General Autologous Blood: No Monitoring Plan: Standard Monitors Recovery Plan: PACU (Discussed GA, agrees to proceed)
[2019-01-09] MEDS ORDERED: Ondansetron 4 MG/2 ML VIAL IVP ONE (17:30)
[2019-01-09] MEDS ORDERED: *HR* HYDROmorphone (PF) 1 MG/ML SYRINGE IVP PRN (17:30)
[2019-01-09] MEDS ORDERED: *HR* Labetalol 20 MG/4 ML SYRINGE IVP PRN (17:30)
[2019-01-09] MEDS ORDERED: *HR* OxyCODONE Immed Rel 5 MG TABLET PO PRN ×2 (17:30→20:50)
[2019-01-09] MEDS ORDERED: Famotidine 20 MG/2 ML VIAL ONE (17:33)
[2019-01-09] MEDS ORDERED: Acetaminophen IV 1,000 MG/100 ML INFUS..BTL ONE (17:33)
[2019-01-09] MEDS ORDERED: Lidocaine -MPF 2% 2 ML VIAL ONE (17:44)
[2019-01-09] MEDS ORDERED: *HR* Succinylcholine 200 MG/10 ML VIAL IVP ONE (17:44)
[2019-01-09] MEDS ORDERED: *HR* Rocuronium Bromide 50 MG/5 ML VIAL ONE (17:44)
--- NOTE | 2019-01-09 18:03 | Acute Care Surgery H&P ---
Date of Encounter: 01/09/19 Time of Encounter: 17:54 Assessment and Plan (1) Acute appendicitis Current Visit: Yes Status: Acute 73M with acute appendicitis; NPO IVF IV abx OR today The assessment and plan as outlined above was discussed with the patient and/or family members who expressed understanding and agreement. All questions were answered. Qualifiers: Acute appendicitis type: with localized peritonitis Appendicitis gangrene presence: without gangrene Appendicitis perforation presence: without perforation Appendicitis abscess presence: without abscess Qualified Code(s): K35.30 - Acute appendicitis with localized peritonitis, without perforation or gangrene History of Present Illness Chief complaint: abdominal pain HPI: Mr. Gill is a 73 year old male PMH significant for stage IV prostate cancer just recently completed chemotherapy, CAD s/p stenting currently on plavix who presents with one day of worsening abdominal pain localized to the right lower quadrant. The pain rates an 8/10, non radiating with no identifiable alleviating factors besides sitting still and worsened with manipulation. The pain is associated with anorexia, no associated nausea or vomiting or fevers. a CT was obtained from an OSH where it demonstrated dilated appendix with an appendicolith and periappendiceal fluid; Past Med Surg Social Fam HX - Past Medical History Medical history: cancer, coronary artery disease, GERD, hyperlipidemia, hypertension, myocardial infarction, thyroid disease, TIA Additional medical history: prostate cancer with mets to the bone Psychiatric history: no psych history - Past Surgical History Additional surgical history: 3 cardiace stents - Social History Smoking Status: Former smoker Smokeless Tobacco Status: No Alcohol use: heavy Drug use: none - Additional Family History Additional family history: non contributory Medications and Allergies Cholecalciferol (Vitamin D3) [Vitamin D3] 2,000 unit PO DAILY 05/14/17 [History] Clopidogrel [Plavix] 75 mg PO DAILY 05/14/17 [History] Levothyroxine [Synthroid] 100 mcg PO DAILY 05/14/17 [History] Metoprolol Tartrate [Lopressor] 50 mg PO BID 05/14/17 [History] Simvastatin [Zocor] 80 mg PO HS 05/14/17 [History] Bicalutamide [Casodex] 50 mg PO DAILY 06/13/18 [History] Lisinopril [Zestril] 20 mg PO DAILY 06/13/18 [History] Ondansetron HCl 8 mg PO Q8H PRN #45 tablet 07/11/18 [Rx] Prochlorperazine Maleate [Compazine] 10 mg PO Q8HR PRN #90 tablet 07/11/18 [Rx] dexAMETHasone [Decadron] 4 mg PO BID PRN #30 tab 07/11/18 [Rx] predniSONE [PredniSONE] 10 mg PO DAILY #60 tablet 07/11/18 [Rx] Acetaminophen [Tylenol] 650 mg PO Q6HR 07/17/18 [History] Tamsulosin [Flomax] 0.4 mg PO DAILY #30 cap.er.24h 07/17/18 [Rx] Loperamide HCl [Imodium A-D] 2 mg PO Q4H PRN #90 capsule 08/17/18 [Rx] Omeprazole [PriLOSEC] 40 mg PO DAILY #30 cap 08/17/18 [Rx] Allergy/AdvReac Type Severity Reaction Status Date / Time tree nut Allergy Anaphylaxis Verified 01/09/19 15:57 Review of Systems All systems PM: 12 point ROS negative besides HPI findings General Surgery Exam Initial Vital Signs Temp Pulse Resp BP Pulse Ox 99.1 F 74 18 170/90 98 01/09/19 15:52 01/09/19 15:52 01/09/19 15:52 01/09/19 15:52 01/09/19 15:52 - General physical appearance no distress - Eyes PERRL, normal ocular movement - ENT normocephalic - Neck trachea midline, no lymphadectomy - Respiratory normal expansion, normal respiratory effort - Cardiovascular Cardiovascular exam: Present: RRR - Abdomen Abdomen general surgery: Present: soft, non tender - Integumentary Integumentary general surgery: Present: warm and dry - Neurologic Present: CN 2-12 grossly intact - Musculoskeletal Present: normal posture - Psychiatric Psychiatric general surgery: Present: A&Ox3 Results - Labs Abnormal lab results PT 13.0 Seconds (9.4-12.1) H 01/09/19 16:17 All other labs normal. - Imaging CT scan - abdomen: report reviewed, image reviewed CT scan - pelvis: report reviewed, image reviewed
[2019-01-09] MEDS ORDERED: *HR* PHENYLEPHRINE 1,000 MCG/10 ML SYRINGE IVP ONE (18:27)
[2019-01-09] MEDS ORDERED: Ondansetron 4 MG/2 ML VIAL ONE (18:37)
[2019-01-09] MEDS ORDERED: Dexamethasone 4 MG/ML VIAL ONE (18:37)
--- NOTE | 2019-01-09 20:31 | Operative Note ---
Date of procedure: 01/09/19 Pre-op diagnosis: acute appendicitis Post-op diagnosis: same Procedure: laparoscopic appendectomy Implants: none Complications: none Anesthesia: GETA Local Anesthetics: 0.5% Sensorcaine HCL SubQ (cc) Surgeon: Kurt Davis Was there an bindery assistant present: No Estimated blood loss (cc): 5 Specimen: appendix Condition: stable Disposition: PACU Procedure in Detail: The patient was brought into the operating room suite. The patient was placed in the supine position. Mechanical DVT prophylaxis was initiated. The patient underwent smooth induction of general endotracheal anesthesia. The patient was prepped and draped in the usual fashion. Preoperative antibiotics were given. A timeout was held identifying the correct patient, pathology, and procedure. Everyone was in agreement and we began a procedure. Incision to Mesenteric Window I started bycreating a supraumbilical incision and via open Miller technique entered into the abdomen. I then used a Vicryl suture on a UR 6 needle in a [id number] fashion to reapproximate but not close the fascia. I then inserted the 10 trocar followed by the camera to visualize the intraabdominal cavity. I then created a 5 mm incision suprapubically and inserted the 5 mm trocar under direct visualization. Roughly 1 handbreadth lateral to the umbilical incision I created another 5 mm incision and inserted another 5 mm trocar under direct visualization. I then inserted the nontraumatic instruments into the 5 mm ports and began the procedure. I was able to identify the tinea coli coalescing at the base of the cecum to identify the appendix. Using the nontraumatic grasper I was able to grasp the appendix and then using the [place] dissector was able to create a mesenteric window. Mesenteric Window to Appendectomy I then inserted the nontraumatic grasper into the same mesenteric window to widen it. I then grasped the appendix and switched from the 10 mm camera to the 5 mm camera so that we can insert the stapler through the umbilical port. The teeth of the stapler through the mesenteric window. It should be stated that the stapler was a 45 mm bowel load stapler. It was positioned at the base of the appendix and I was able to confirm under direct visualization that the teeth contained no other structures such as the cecum. I then fired the stapler and resected the appendix from the base of the cecum. I then loaded up a vascular load stapler and then in the similar fashion did fire across the mesentery. Retrieval to Closure I then inserted the Endo Catch bag to retrieve the specimen which was intact upon retrieval. I then switched back to the 10 mm camera and inserted the nontraumatic grasper as well as a suction-infection control practitioner into the 5 mm ports. And under direct visualization I was able to appreciate the staple line of the mesoappendix as well as the staple line of the base of the cecum. There was no obvious leaking nor bleeding. The pelvis did not have any collection of fluid. I then concluded the procedure, turned off the insufflation, removed the trochars under direct visualization, and then closed the umbilical fascia using the Vicryl suture that was placed at the beginning. I then closed all incisions with interrupted 4-0 Monocryl. And then sealed with Dermabon. It should be stated that I did use 0.5% Marcaine as a local anesthetic. The patient to lerated the procedure well and did go back to PACU in stable condition.
[2019-01-09] MEDS ORDERED: D5% in 0.45% NACL w KCl 20 MEQ/1,000 ML MLS IVC SCH (20:50)
[2019-01-09] MEDS ORDERED: Ondansetron 4 MG/2 ML VIAL IVP PRN (20:50)
--- NOTE | 2019-01-09 21:04 | Anesthesia Evaluation Post Op ---
Date of Encounter: 01/09/19 Time of Encounter: 20:00 - Vital Signs Vital Signs: Vital Signs/O2 Sat/Glucose, Most Current Temp Pulse Resp BP Pulse Ox 01/09/19 20:47 99.2 F 98 14 151/82 95 01/09/19 20:27 97.6 F 94 14 160/77 98 01/09/19 20:17 95 16 140/76 97 01/09/19 20:07 87 14 125/69 94 01/09/19 19:57 97.3 F L 87 16 120/61 97 - Lungs Lungs: Clear Ascult./Percussion - Airway Airway: Non-obstructed - Cardiovascular Regular Rate - Mental Status Mental Status: Alert & Oriented, Answers Appropriately - Pain Pain Scale: 1 - Nausea Vomiting Nausea Vomiting: Not Present - Hydration Hydration: Ice chips - Discharge PostOp Status: Transfer Patient to floor
[2019-01-10] MEDS ORDERED: Piperacillin/Tazobactam 3.375 GM in 0.9 % Sodium Chloride Mini Bag 100 ML IVPB SCH
--- NOTE | 2019-01-10 10:14 | Discharge Summary ---
<Tanesha Rivera - Last Filed: 01/10/19 10:08> Orders not resulted at time of discharge: Pending orders 01/09/19 18:36 Surgical Pathology [PTH] Routine Date of Encounter: 01/10/19 Time of Encounter: 10:08 - Discharge Diagnosis (1) Acute appendicitis Priority: Primary Status: Resolved Qualifiers: Acute appendicitis type: with localized peritonitis Appendicitis gangrene presence: without gangrene Appendicitis perforation presence: without perforation Appendicitis abscess presence: without abscess Qualified Code(s): K35.30 - Acute appendicitis with localized peritonitis, without perforation or gangrene General Surgery Exam Initial Vital Signs Temp Pulse Resp BP Pulse Ox 99.1 F 74 18 170/90 98 01/09/19 15:52 01/09/19 15:52 01/09/19 15:52 01/09/19 15:52 01/09/19 15:52 - General physical appearance well nourished, no distress, moderate pain (controlled with meds) - ENT atraumatic, normocephalic - Neck trachea midline - Respiratory normal expansion, normal respiratory effort - Cardiovascular Cardiovascular exam: Present: RRR - Abdomen Abdomen general surgery: Present: bowel sounds present, soft, tender (expected postopeartive) - Integumentary Integumentary general surgery: Present: warm and dry - Neurologic Present: normal coordination, normal sensation - Musculoskeletal Present: normal gait, normal posture - Psychiatric Psychiatric general surgery: Present: A&Ox3 - Hospital Course Hospital course: Mr. Gill is a 73 year old male who presented on 01/09/2018 for abdominal pain. He was found to have acute appendicitis. He was taken to the operating room on the same night where he underwent an uncomplicated laparoscopic appendectomy. He is ambulating avoiding without difficulty, tolerating diet without nausea or vomiting, vital signs are stable, and he is afebrile. We will begin discharge planning to home with a follow-up in the office in approximately 2 to 3 weeks. Home lisinopril held d/t BP. Resume metoprolol tonight. - Time Spent with Patient Total time spent providing and/or coordinating discharge services: - Discharge Medications Prescriptions: New Docusate Sodium [Colace] 100 mg PO BID PRN #30 capsule PRN Reason: Contstipation OxyCODONE Immed Rel [Roxicodone 5 MG] 5 mg PO Q6HR PRN 5 Days #20 tablet PRN Reason: Severe Pain Continued Clopidogrel [Plavix] 75 mg PO DAILY Simvastatin [Zocor] 80 mg PO HS Metoprolol Tartrate [Lopressor] 50 mg PO BID Cholecalciferol (Vitamin D3) [Vitamin D3] 2,000 unit PO DAILY Levothyroxine [Synthroid] 100 mcg PO DAILY Prochlorperazine Maleate [Compazine] 10 mg PO Q8HR PRN #90 tablet PRN Reason: Nausea dexAMETHasone [Decadron] 4 mg PO BID PRN #30 tab PRN Reason: as directed Ondansetron HCl 8 mg PO Q8H PRN #45 tablet PRN Reason: Nausea predniSONE [PredniSONE] 10 mg PO DAILY #60 tablet Acetaminophen [Tylenol] 650 mg PO Q6HR Tamsulosin [Flomax] 0.4 mg PO DAILY #30 cap.er.24h No Action Enzalutamide [Xtandi] 160 mg PO DAILY Lisinopril [Zestril] 5 mg PO DAILY Omeprazole [PriLOSEC] 20 mg PO DAILY Home Medications: Cholecalciferol (Vitamin D3) [Vitamin D3] 2,000 unit PO DAILY 05/14/17 [History] Clopidogrel [Plavix] 75 mg PO DAILY 05/14/17 [History] Levothyroxine [Synthroid] 100 mcg PO DAILY 05/14/17 [History] Metoprolol Tartrate [Lopressor] 50 mg PO BID 05/14/17 [History] Simvastatin [Zocor] 80 mg PO HS 05/14/17 [History] Ondansetron HCl 8 mg PO Q8H PRN #45 tablet 07/11/18 [Rx] Prochlorperazine Maleate [Compazine] 10 mg PO Q8HR PRN #90 tablet 07/11/18 [Rx] dexAMETHasone [Decadron] 4 mg PO BID PRN #30 tab 07/11/18 [Rx] predniSONE [PredniSONE] 10 mg PO DAILY #60 tablet 07/11/18 [Rx] Acetaminophen [Tylenol] 650 mg PO Q6HR 07/17/18 [History] Tamsulosin [Flomax] 0.4 mg PO DAILY #30 cap.er.24h 07/17/18 [Rx] Docusate Sodium [Colace] 100 mg PO BID PRN #30 capsule 01/10/19 [Rx] Enzalutamide [Xtandi] 160 mg PO DAILY 01/10/19 [History] Lisinopril [Zestril] 5 mg PO DAILY 01/10/19 [History] Omeprazole [PriLOSEC] 20 mg PO DAILY 01/10/19 [History] OxyCODONE Immed Rel [Roxicodone 5 MG] 5 mg PO Q6HR PRN 5 Days #20 tablet 01/10/19 [Rx] Allergies/Adverse Reactions: Allergy/AdvReac Type Severity Reaction Status Date / Time tree nut Allergy Anaphylaxis Verified 01/10/19 10:11 Date of admission: 01/09/19 17:54 [facility] care physician: [facility] Consults: 01/09/19 16:03 Consult to Surgery [CONS] Stat Consulting Provider: Acute Care Surgery Reason for Consult: Acute appendicitis Time Notified: 16:03 Call Completed: Yes Discharging clinician: Debra Fernandez (Lissett Rivera APRN-IZABELA) Anticipated date of discharge: 01/10/19 Labs on day of discharge: Labs from last 24 hours 01/09/19 16:17 PT 13.0 H INR 1.1 APTT 34.2 - Impressions ITS Impressions Chest X-Ray 01/09/19 16:40 IMPRESSION: Cardiac silhouette enlargement. Mildly increased perihilar and bibasilar opacity may reflect mild interstitial pulmonary edema. Pneumonia is felt less likely. D/ / 01/09/2019 16:43:55 Morgan Goss MD / [facility] Interpreting Provider: Morgan Goss MD - Patient Status Disposition: Home, Self-Care Condition: Good Functional capacity at discharge: independent ambulation Overall status at discharge: patient is progressing back to baseline - Discharge Instructions Instructions: Laparoscopic Appendectomy (DC) Follow Up With: [facility] [Outside] Tanesha Rivera SMOKE JUMPER SUPERVISOR [Advanced Practice Nurse] - 01/22/19 1:15 pm Additional Instructions: General Surgical Discharge Instructions 1. No pushing, pulling, or lifting greater than 15 lbs for 4 weeks. 2. You may remove your dressings and shower beginning today, but no tub baths, soaking, or swimming for 2 weeks. 3. No driving for one weeks unless otherwise specified and then you may resume driving when you are off narcotics and are safe to react in a car. 4. Apply ice 20 minutes every hour that you are awake to your abdomen and Take 1000 mg acetaminophen every 6-8 hours for discomfort. If this does not relieve discomfort, you may take the as needed Oxycodone. Eat a small snack with pain medication as this will help reduce the risk of nausea. Take narcotics as directed. Do not take more narcotics then directed and do not share your narcotics with any other person. Do not drink alcohol while on narcotics. You can take the Zofran/ondansetron if needed for nausea or with a dose of narcotics to prevent nausea. 5. Take stool softeners (Colace) or a water based laxative (Miralax) while taki ng narcotics. You may hold for loose stools. 6. Report any fevers greater than 100.5F, increase abdominal discomfort, drainage that looks like pus, increased redness or pain at the surgical site, or any vomiting. 7. Report any pain in the calves, shortness of breath, or rapid heartbeat. 8. Follow-up in the office as directed. 9. If you were prescribed antibiotics, do not stop them without talking to your provider. - Diet and Activity Activity: increase activity as tolerated Diet: advance to your usual diet <Debra Amador - Last Filed: 01/10/19 13:05> Orders not resulted at time of discharge: Pending orders 01/09/19 18:36 Surgical Pathology [PTH] Routine Date of Encounter: 01/10/19 General Surgery Exam Initial Vital Signs Temp Pulse Resp BP Pulse Ox 99.1 F 74 18 170/90 98 01/09/19 15:52 01/09/19 15:52 01/09/19 15:52 01/09/19 15:52 01/09/19 15:52 - Hospital Course Hospital course: Mr. Gill is a 73 year old male - Time Spent with Patient Total time spent providing and/or coordinating discharge services: Date of admission: 01/09/19 17:54 Primary care physician: [facility] Consults: 01/09/19 16:03 Consult to Surgery [CONS] Stat Consulting Provider: Acute Care Surgery Reason for Consult: Acute appendicitis Time Notified: 16:03 Call Completed: Yes Labs on day of discharge: Labs from last 24 hours 01/09/19 16:17 PT 13.0 H INR 1.1 APTT 34.2 - Impressions ITS Impressions Chest X-Ray 01/09/19 16:40 IMPRESSION: Cardiac silhouette enlargement. Mildly increased perihilar and bibasilar opacity may reflect mild interstitial pulmonary edema. Pneumonia is felt less likely. D/ / 01/09/2019 16:43:55 Morgan Goss MD / [facility] Interpreting Provider: Morgan Goss MD - Attending Attestation I examined this patient and my medical decision-making was reviewed with the SMOKE JUMPER SUPERVISOR. I agree with the documented findings, disposition and treatment plan as described to the extent set forth below. POD#1 lap appy. Pt tolerating regular diet. Pt without new complaint. Pain is well controlled. Ambulating. Voiding. Afebrile. Post-op condiiton is satisfactory for DC home. F/U 2 weeks.
[2019-01-10] MEDS ORDERED: *HR* OxyCODONE/APAP 5/325 TABLET PO PRN (10:15)
[2019-01-10 11:18] VITALS: BP 122/70
--- NOTE | 2019-01-10 17:30 | Electrocardiograph Report ---
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
== END 2019-01-10 13:03 | disposition home or self-care (01) ==
LOC: 3ANU 15:46 → EMEROOARM 15:46 → 3ANU 17:10
PROVIDERS: ADMIT Surgery; ATTEND Surgery

== ENCOUNTER 2019-01-12 17:21 | Inpatient (IN) ==
[2019-01-12] MEDS ORDERED: Isovue-370 500 ML BOTTLE IVP ONE (17:49)
--- NOTE | 2019-01-12 17:58 | Emergency Department Note ---
Disposition Clinical Impression: Small bowel obstruction Disposition: Admitted As Inpatient Condition: Good Time of Disposition: 20:52 Abdominal Pain HPI - General Chief Complaint: ED Abdominal Pain Stated Complaint: ABD pain Time Seen by Provider: 01/12/19 17:30 Source: patient, family Mode of arrival: ambulatory Limitations: no limitations Nursing Notes Reviewed: Yes Vital Signs Reviewed: Yes - History of Present Illness HPI Narrative: 73 yo man who had laprascopic appendectomy at [place] on Monday came to ED with acute onset abdominal distention, pain, and bilious emesis that started around 3 p.m. He rates pain as 5/10 when he is upright, 2/10 when lying down. He has not been able to tolerate PO intake. Last BM was Monday; he is able to urinate without issue. He normally has a BM daily. He denies fever, CP, SOB and diarrhea. He said the surgery was uneventful and he was discharged the next day. Patient is on Plavix. He was given Oxycontin for pain relief post-surgery, but has only taken 1 pill. He has also had a cholecystectomy, which was uneventful. PMH also includes prostate cancer (dx 2018) w/ sclerotic lesions of spine and pelvis, bilateral renal cysts. Pain Scale: 5 - Related Data Home Medications Medication Instructions Recorded Confirmed Cholecalciferol (Vitamin D3) 2,000 unit PO DAILY 05/14/17 01/10/19 [Vitamin D3] Clopidogrel [Plavix] 75 mg PO DAILY 05/14/17 01/10/19 Levothyroxine [Synthroid] 100 mcg PO DAILY 05/14/17 01/10/19 Metoprolol Tartrate [Lopressor] 50 mg PO BID 05/14/17 01/10/19 Simvastatin [Zocor] 80 mg PO HS 05/14/17 01/10/19 Acetaminophen [Tylenol] 650 mg PO Q6HR 07/17/18 01/10/19 Enzalutamide [Xtandi] 160 mg PO DAILY 01/10/19 01/10/19 Lisinopril [Zestril] 5 mg PO DAILY 01/10/19 01/10/19 Omeprazole [PriLOSEC] 20 mg PO DAILY 01/10/19 01/10/19 Previous Rx's Medication Instructions Recorded Ondansetron HCl 8 mg PO Q8H PRN #45 tablet 07/11/18 Prochlorperazine Maleate 10 mg PO Q8HR PRN #90 tablet 07/11/18 [Compazine] dexAMETHasone [Decadron] 4 mg PO BID PRN #30 tab 07/11/18 predniSONE [PredniSONE] 10 mg PO DAILY #60 tablet 07/11/18 Tamsulosin [Flomax] 0.4 mg PO DAILY #30 cap.er.24h 07/17/18 Docusate Sodium [Colace] 100 mg PO BID PRN #30 capsule 01/10/19 OxyCODONE Immed Rel [Roxicodone 5 5 mg PO Q6HR PRN 5 Days #20 tablet 01/10/19 MG] Allergies Allergy/AdvReac Type Severity Reaction Status Date / Time tree nut Allergy Anaphylaxis Verified 01/10/19 10:11 All systems ED: reviewed and negative except as stated. Review of Systems: As Per HPI Gastrointestinal: Reports: abdominal pain, nausea, vomiting, constipation Abdominal Pain PMH - Past Medical History Medical history: Reports: cancer, coronary artery disease, GERD, hyperlipidemia, hypertension, myocardial infarction, thyroid disease, TIA Male Surgical History: Reports: angioplasty/stent, cataract, cholecystectomy Psychiatric history: Reports: no psych history - Social History Smoking status: Former smoker Alcohol use: Reports: heavy Drug use: Reports: none Physical Exam PE Gen: AOx3, NAD HEENT: No lymphadenopathy, no erythema, no edema. Pupils equal and reactive. Cardio: Regular rate and rhythm, no murmur, no peripheral edema, good perfusion to all extremities, no cyanosis Resp: Equal breath sounds bilaterally, no wheeze, no cough GI: +distended, tympanic, painful to palpation in all quadrants abdomen. Laprascopic incisions with no signs of dehisicence, however, LLQ incision has some purulent drainage and abdomen is more firm on left. : No suprapubic tenderness or distention MSK: Normal ROM, no joint swelling or erythema Neuro: CNI-XII intact, strength and sensation WNL Psych: Appropriate affect Course Course Narrative: VS stable, WNL. Presentation and history concerning for possible bowel obstruction or perforation. CT abd/pelvis w/ contrast, CBC, CMP, lipase, LFTs ordered along with EKG. - Reevaluation(s) Reevaluation #1: 18F NG tube inserted and connected to low intermittent wall suction per Dr. Almeida's request. Patient tolerated procedure well after receiving 3 cc visc ous lidocaine in nasopharyngeal cavity. Draining well. Placement confirmed on KUB XR. Time: 21:55 Vital Signs Temperature 97.6 F 01/12/19 17:25 Pulse Rate 78 01/12/19 17:25 Respiratory Rate 18 01/12/19 17:25 Blood Pressure 147/79 01/12/19 17:25 O2 Sat by Pulse Oximetry 94 01/12/19 17:25 Temperature 98.3 F 01/12/19 23:32 Pulse Rate 87 01/12/19 23:32 Respiratory Rate 16 01/12/19 23:32 Blood Pressure 133/84 01/12/19 23:32 O2 Sat by Pulse Oximetry 92 01/12/19 23:32 Oxygen Delivery Oxygen Delivery Room Air Abdominal Pain - MDM Narrative Medical decision making narrative: VS stable and WNL. Patient denies need for pain or nausea medications. Following CT abd/pelvis report which could not rule out SBO vs post-op ileus, spoke with surgery, who agreed to admit patient to their service. Dr. Almeida requested insertion of an 18F NG tube connected to low wall suction as well as IVF, which was all done. Patient agreed with plan to admit. - Medical Records Medical records reviewed: Yes I reviewed the patient's medical records. - Lab Data Lab results reviewed: Yes I reviewed the patient's lab results. Result diagrams: 01/12/19 18:35 01/12/19 18:35 Lab Results 01/12/19 01/12/19 01/12/19 Range/Units 18:35 18:35 18:35 WBC 9.7 (4.3-11.1) K/mcL RBC 4.61 (4.19-5.50) M/mcL Hgb 14.0 (12.9-16.9) g/dL Hct 43.5 (37.5-50.1) % MCV 94.4 (83.0-100.0) fL MCH 30.4 (28.0-33.3) pg MCHC 32.2 (31.6-35.5) g/dL RDW 13.7 (11.5-14.5) % Plt Count 210 (140-400) K/mcL MPV 10.3 (9.4-12.4) fL Immature Gran % 0.5 (0-4) % Seg Neutrophils % 80.0 % Lymphocytes % 7.5 % Monocytes % 10.5 % Eosinophils % 1.2 % Basophils % 0.3 % Neutrophils # 7.8 (1.6-8.9) K/mcL Lymphocytes # 0.7 (0.6-4.6) K/mcL Monocytes # 1.0 (0.0-1.3) K/mcL Eosinophils # 0.1 (0.0-0.6) K/mcL Basophils # 0.0 (0.0-0.2) K/mcL PT 12.7 H (9.4-12.1) Seconds INR 1.1 APTT 30.7 (26.0-36.0) Seconds Sodium 139 (136-145) mEq/L Potassium 3.8 (3.5-5.1) mEq/L Chloride 103 (98-107) mEq/L Carbon Dioxide 25 (23-29) mEq/L BUN 14 (8-23) mg/dL Creatinine 0.99 (0.70-1.30) mg/dL Est GFR ( Amer) > 60 (> 60) Est GFR (Non-Af Amer) > 60 (> 60) BUN/Creatinine Ratio 14 (6-26) Glucose 107 H (70-105) mg/dL Calculated Osmolality 289 (280-300) Lactic Acid (0.5-2.2) mmol/L Calcium 7.6 L (8.6-10.3) mg/dL Total Bilirubin 1.2 H (0.3-1.0) mg/dL Direct Bilirubin 0.2 (0.0-0.2) mg/dL Indirect Bilirubin 1.0 (0.0-1.2) mg/dL AST 10 L (13-39) Units/L ALT 9 (7-52) Units/L Alkaline Phosphatase 83 (34-104) Units/L Serum Total Protein 6.0 L (6.4-8.9) g/dL Albumin 3.4 L (3.5-5.7) g/dL Globulin 2.6 (2.4-3.5) g/dL Albumin/Globulin Ratio 1.3 (1.1-2.2) Lipase 11 (11-82) Units/L 01/12/19 Range/Units 18:35 WBC (4.3-11.1) K/mcL RBC (4.19-5.50) M/mcL Hgb (12.9-16.9) g/dL Hct (37.5-50.1) % MCV (83.0-100.0) fL MCH (28.0-33.3) pg MCHC (31.6-35.5) g/dL RDW (11.5-14.5) % Plt Count (140-400) K/mcL MPV (9.4-12.4) fL Immature Gran % (0-4) % Seg Neutrophils % % Lymphocytes % % Monocytes % % Eosinophils % % Basophils % % Neutrophils # (1.6-8.9) K/mcL Lymphocytes # (0.6-4.6) K/mcL Monocytes # (0.0-1.3) K/mcL Eosinophils # (0.0-0.6) K/mcL Basophils # (0.0-0.2) K/mcL PT (9.4-12.1) Seconds INR APTT (26.0-36.0) Seconds Sodium (136-145) mEq/L Potassium (3.5-5.1) mEq/L Chloride (98-107) mEq/L Carbon Dioxide (23-29) mEq/L BUN (8-23) mg/dL Creatinine (0.70-1.30) mg/dL Est GFR ( Amer) (> 60) Est GFR (Non-Af Amer) (> 60) BUN/Creatinine Ratio (6-26) Glucose (70-105) mg/dL Calculated Osmolality (280-300) Lactic Acid 1.1 (0.5-2.2) mmol/L Calcium (8.6-10.3) mg/dL Total Bilirubin (0.3-1.0) mg/dL Direct Bilirubin (0.0-0.2) mg/dL Indirect Bilirubin (0.0-1.2) mg/dL AST (13-39) Units/L ALT (7-52) Units/L Alkaline Phosphatase (34-104) Units/L Serum Total Protein (6.4-8.9) g/dL Albumin (3.5-5.7) g/dL Globulin (2.4-3.5) g/dL Albumin/Globulin Ratio (1.1-2.2) Lipase (11-82) Units/L - Radiology Data Radiology results reviewed: Yes I reviewed the patient's radiology results. Chest/Abdomen X-ray 01/12/19 18:29 IMPRESSION: 1. Multiple dilated loops of small bowel suggestive of postoperative ileus. No free air. 2. Multifocal sclerotic osseous lesions are again identified. 3. Increasing airspace opacity in the right mid lung suspicious for pneumonia. D/ / 01/12/2019 18:41:26 Haley Valenzuela MD / [facility] Interpreting Provider: Haley Valenzuela MD Abdomen/Pelvis CT 01/12/19 20:19 IMPRESSION: 1. Postsurgical changes from interval appendectomy. Inflammatory changes with a small amount of fluid and extraluminal gas are noted in the right lower quadrant likely postoperative in etiology. 2. Diffusely dilated small bowel which tapers gradually towards the distal ileum. Findings favor postoperative ileus given recent appendectomy over small bowel obstruction. A partial small-bowel obstruction cannot be entirely excluded. 3. Multifocal osseous sclerotic metastases are again identified. D/ / 01/12/2019 20:39:26 Haley Valenzuela MD / charito Interpreting Provider: Haley Valenzuela MD - EKG Data EKG attestation: Yes I reviewed and interpreted this EKG. Attestation Statement - Attestation Attestation: I, Sean Packer, examined this patient and my medical decision-making was reviewed with the CALL CENTER ASSISTANT/PA/Advanced Practice Nurse/Resident Physician. I agree with the documented findings, disposition and treatment plan as described except to the extent set forth below. 73-year-old male presents emergency Department with concerns of abdominal pain. Patient has a history of recent appendectomy. Patient is not had a bowel movement since the procedure. He took 1 day of pain medication but has not taken any within the past 24 hours. Patient reports subjective fever at home. He has had a little episodes of nonbilious nonbloody emesis. Patient denies recent trauma other than the surgery. Abdomen is distended and tender to palpation diffusely. CT of the abdomen and pelvis shows distention of the bowels with concerns for small bowel obstruction versus postoperative ileus. He updated the general surgeon regarding the patient's case and presentation and patient will be admitted to the surgeon. EKG reads as normal sinus rhythm with a rate of 75 without evidence of STEMI or other dysrhythmia. Patient does not have atrial fibrillation.
[2019-01-12 18:50] LABS: Basophils % 0.3 %; Eosinophils # 0.1 K/mcL (0.0-0.6); Eosinophils % 1.2 %; Hematocrit 43.5 % (37.5-50.1); Immature Granulocytes % 0.5 % (0-4); Lymphocytes # 0.7 K/mcL (0.6-4.6); Lymphocytes % 7.5 %; Mean Corpuscular HGB Conc 32.2 g/dL (31.6-35.5); Mean Corpuscular Hemoglobin 30.4 pg (28.0-33.3); Mean Corpuscular Volume 94.4 fL (83.0-100.0); Mean Platelet Volume 10.3 fL (9.4-12.4); Monocytes % 10.5 %; Neutrophils # 7.8 K/mcL (1.6-8.9); Platelet Count 210 K/mcL (140-400); Red Blood Count 4.61 M/mcL (4.19-5.50); Red Cell Distribution Width 13.7 % (11.5-14.5); White Blood Count 9.7 K/mcL (4.3-11.1)
[2019-01-12 19:02] LABS: INR 1.1; Prothrombin Time 12.7 Seconds (9.4-12.1)
[2019-01-12 19:04] LABS: Activated Partial Thrombo Time 30.7 Seconds (26.0-36.0)
[2019-01-12 19:11] LABS: Alanine Aminotransferase 9 Units/L (7-52); Albumin 3.4 g/dL (3.5-5.7); Albumin/Globulin Ratio 1.3 (1.1-2.2); Alkaline Phosphatase 83 Units/L (34-104); Aspartate Amino Transferase 10 Units/L (13-39); BUN/Creatinine Ratio 14 (6-26); Bilirubin,Direct 0.2 mg/dL (0.0-0.2); Bilirubin,Total 1.2 mg/dL (0.3-1.0); Blood Urea Nitrogen 14 mg/dL (8-23); Calcium 7.6 mg/dL (8.6-10.3); Carbon Dioxide 25 mEq/L (23-29); Chloride 103 mEq/L (98-107); Globulin 2.6 g/dL (2.4-3.5); Glucose 107 mg/dL (70-105); Lipase 11 Units/L (11-82); Osmolality,Calculated 289 (280-300); Potassium 3.8 mEq/L (3.5-5.1); Sodium 139 mEq/L (136-145); eGFR For African Americans > 60 (> 60); eGFR For Non-African Americans > 60 (> 60)
[2019-01-12] MEDS ORDERED: 0.9 % Sodium Chloride 1,000 ML IVC ONE (20:54)
[2019-01-12] MEDS ORDERED: Lidocaine Viscous Oral Soln 15 ML SOLUTION MM ONE (21:04)
[2019-01-12] MEDS ORDERED: Morphine Sulfate Oral CONC 10 MG/0.5 ML ORAL.SYG SL PRN (21:16)
[2019-01-12] MEDS ORDERED: Ondansetron 4 MG/2 ML VIAL IVP PRN (21:16)
[2019-01-12] MEDS: 0.9 % Sodium Chloride 1,000 ML IVC SCH (23:02)
[2019-01-13] MEDS: *HR* Heparin 5,000 UNIT/ML VIAL SQ SCH ×2 (05:36→18:22)
[2019-01-13] MEDS: Pantoprazole 40 MG VIAL IVP SCH (05:36)
[2019-01-13] MEDS: 0.9 % Sodium Chloride 1,000 ML IVC SCH ×2 (08:57→18:59)
--- NOTE | 2019-01-13 11:03 | Acute Care Surgery H&P ---
Date of Encounter: 01/13/19 Time of Encounter: 11:00 Assessment and Plan (1) Postoperative ileus Current Visit: Yes Status: Acute The assessment and plan as outlined above was discussed with the patient and/or family members who expressed understanding and agreement. All questions were answered. I explained to the patient and family member that he may be exhibiting signs of a postoperative ileus secondary to his acute appendicitis and laparoscopic appendectomy. We will start with IV fluids and NG tube decompression. His laboratory studies look good and he does not have a leukocytosis. We will continue with serial abdominal exams. I will allow ice chips and recommended that he get out of bed to chair to help with bowels stimulation. History of Present Illness Chief complaint: Abdominal distension, pain. HPI: Mr. Gill is a 73 year old male with a past medical history significant for stage IV prostate cancer, coronary artery disease, history of DE with also history of cardiac stent placement who presents to the hospital secondary to abdominal pain and distention. He recently underwent a laparoscopic appendectomy significant due to acute appendicitis on 01/09/2019 and was discharged home on January 10. The patient states that he has not had any flatus or bowel movements and actually his last bowel movement was this past Monday. He says that he had had some nausea and vomiting prior to presenting and because of the distention and the overall symptoms he presented himself to [facility] for further evaluation. On average he has a bowel movement once per day. Past Med Surg Social Fam HX - Past Medical History Medical history: cancer, coronary artery disease, GERD, hyperlipidemia, hypertension, myocardial infarction, thyroid disease, TIA Additional medical history: prostate cancer with mets to the bone, obstructive sleep apnea Psychiatric history: no psych history - Past Surgical History Surgical History: cataract, cholecystectomy Additional surgical history: 3 cardiac stents - Social History Smoking Status: Former smoker Smokeless Tobacco Status: No Alcohol use: heavy Drug use: none Medications and Allergies Cholecalciferol (Vitamin D3) [Vitamin D3] 2,000 unit PO DAILY 05/14/17 [History] Clopidogrel [Plavix] 75 mg PO DAILY 05/14/17 [History] Levothyroxine [Synthroid] 100 mcg PO DAILY 05/14/17 [History] Metoprolol Tartrate [Lopressor] 50 mg PO BID 05/14/17 [History] Simvastatin [Zocor] 80 mg PO HS 05/14/17 [History] Ondansetron HCl 8 mg PO Q8H PRN #45 tablet 07/11/18 [Rx] Prochlorperazine Maleate [Compazine] 10 mg PO Q8HR PRN #90 tablet 07/11/18 [Rx] dexAMETHasone [Decadron] 4 mg PO BID PRN #30 tab 07/11/18 [Rx] predniSONE [PredniSONE] 10 mg PO DAILY #60 tablet 07/11/18 [Rx] Acetaminophen [Tylenol] 650 mg PO Q6HR 07/17/18 [History] Tamsulosin [Flomax] 0.4 mg PO DAILY #30 cap.er.24h 07/17/18 [Rx] Docusate Sodium [Colace] 100 mg PO BID PRN #30 capsule 01/10/19 [Rx] Enzalutamide [Xtandi] 160 mg PO DAILY 01/10/19 [History] Lisinopril [Zestril] 5 mg PO DAILY 01/10/19 [History] Omeprazole [PriLOSEC] 20 mg PO DAILY 01/10/19 [History] OxyCODONE Immed Rel [Roxicodone 5 MG] 5 mg PO Q6HR PRN 5 Days #20 tablet 01/10/19 [Rx] Allergy/AdvReac Type Severity Reaction Status Date / Time tree nut Allergy Anaphylaxis Verified 01/10/19 10:11 Review of Systems All systems PM: reviewed and no additional remarkable complaints except as stated All systems PM: The remainder of the systems were reviewed and are negative General Surgery Exam Initial Vital Signs Temp Pulse Resp BP Pulse Ox 97.6 F 78 18 147/79 94 01/12/19 17:25 01/12/19 17:25 01/12/19 17:25 01/12/19 17:25 01/12/19 17:25 - Eyes PERRL, normal ocular movement - Respiratory normal expansion, normal respiratory effort, clear to auscultation - Cardiovascular Cardiovascular exam: Present: RRR, no murmurs/rubs/gallops - Abdomen Abdomen general surgery: Present: bowel sounds present (scant, borborygmi), distended, tender - Neurologic Present: CN 2-12 grossly intact - Musculoskeletal Present: other (no clubbing, cyanosis, or edema) - Psychiatric Psychiatric general surgery: Present: A&Ox3, oriented to person, oriented to place, oriented to time Results - Labs 01/12/19 18:35 01/12/19 18:35 Abnormal lab results PT 12.7 Seconds (9.4-12.1) H 01/12/19 18:35 Glucose 107 mg/dL (70-105) H 01/12/19 18:35 Calcium 7.6 mg/dL (8.6-10.3) L 01/12/19 18:35 Total Bilirubin 1.2 mg/dL (0.3-1.0) H 01/12/19 18:35 AST 10 Units/L (13-39) L 01/12/19 18:35 Serum Total Protein 6.0 g/dL (6.4-8.9) L 01/12/19 18:35 Albumin 3.4 g/dL (3.5-5.7) L 01/12/19 18:35 Diabetes panel 01/12/19 Range/Units 18:35 Sodium 139 (136-145) mEq/L Potassium 3.8 (3.5-5.1) mEq/L Chloride 103 (98-107) mEq/L Carbon Dioxide 25 (23-29) mEq/L BUN 14 (8-23) mg/dL Creatinine 0.99 (0.70-1.30) mg/dL Glucose 107 H (70-105) mg/dL Calcium 7.6 L (8.6-10.3) mg/dL AST 10 L (13-39) Units/L ALT 9 (7-52) Units/L Alkaline Phosphatase 83 (34-104) Units/L Albumin 3.4 L (3.5-5.7) g/dL Calcium panel 01/12/19 Range/Units 18:35 Calcium 7.6 L (8.6-10.3) mg/dL Albumin 3.4 L (3.5-5.7) g/dL Pituitary panel 01/12/19 Range/Units 18:35 Sodium 139 (136-145) mEq/L Potassium 3.8 (3.5-5.1) mEq/L Chloride 103 (98-107) mEq/L Carbon Dioxide 25 (23-29) mEq/L BUN 14 (8-23) mg/dL Creatinine 0.99 (0.70-1.30) mg/dL Glucose 107 H (70-105) mg/dL Calcium 7.6 L (8.6-10.3) mg/dL Adrenal panel 01/12/19 Range/Units 18:35 Sodium 139 (136-145) mEq/L Potassium 3.8 (3.5-5.1) mEq/L Chloride 103 (98-107) mEq/L Carbon Dioxide 25 (23-29) mEq/L BUN 14 (8-23) mg/dL Creatinine 0.99 (0.70-1.30) mg/dL Glucose 107 H (70-105) mg/dL Calcium 7.6 L (8.6-10.3) mg/dL Total Bilirubin 1.2 H (0.3-1.0) mg/dL AST 10 L (13-39) Units/L ALT 9 (7-52) Units/L Alkaline Phosphatase 83 (34-104) Units/L Albumin 3.4 L (3.5-5.7) g/dL All other labs normal. - Imaging Abdominal x-ray: report reviewed, image reviewed (I personally reviewed the CT scan images and report which shows abdominal distention with dilated small bowel. There appears to be stool within the colon as well.)
[2019-01-13] MEDS: Bisacodyl 10 MG RECTAL SUPPOSITORY RC SCH (12:07)
[2019-01-14] MEDS: 0.9 % Sodium Chloride 1,000 ML IVC SCH ×2 (04:26→13:40)
[2019-01-14 05:56] LABS: Basophils % 0.5 %; Eosinophils # 0.3 K/mcL (0.0-0.6); Eosinophils % 2.9 %; Hematocrit 42.4 % (37.5-50.1); Hemoglobin 13.2 g/dL (12.9-16.9); Immature Granulocytes % 0.8 % (0-4); Lymphocytes # 1.1 K/mcL (0.6-4.6); Lymphocytes % 12.6 %; Mean Corpuscular HGB Conc 31.1 g/dL (31.6-35.5); Mean Corpuscular Hemoglobin 29.7 pg (28.0-33.3); Mean Corpuscular Volume 95.5 fL (83.0-100.0); Mean Platelet Volume 10.5 fL (9.4-12.4); Monocytes # 0.9 K/mcL (0.0-1.3); Monocytes % 10.5 %; Neutrophils # 6.4 K/mcL (1.6-8.9); Platelet Count 225 K/mcL (140-400); Red Blood Count 4.44 M/mcL (4.19-5.50); Red Cell Distribution Width 13.8 % (11.5-14.5); Segmented Neutrophils % 72.7 %; White Blood Count 8.7 K/mcL (4.3-11.1)
[2019-01-14 06:10] LABS: BUN/Creatinine Ratio 15 (6-26); Blood Urea Nitrogen 14 mg/dL (8-23); Calcium 7.2 mg/dL (8.6-10.3); Carbon Dioxide 24 mEq/L (23-29); Chloride 108 mEq/L (98-107); Glucose 89 mg/dL (70-105); Osmolality,Calculated 302 (280-300); Potassium 3.6 mEq/L (3.5-5.1); Sodium 146 mEq/L (136-145); eGFR For African Americans > 60 (> 60); eGFR For Non-African Americans > 60 (> 60)
[2019-01-14] MEDS: Pantoprazole 40 MG VIAL IVP SCH (06:11)
[2019-01-14] MEDS: *HR* Heparin 5,000 UNIT/ML VIAL SQ SCH ×2 (06:11→18:52)
--- NOTE | 2019-01-14 08:53 | AcuteCareSurgery Progress Note ---
Date of Encounter: 01/14/19 Time of Encounter: 07:45 - Assessment and Plan (1) Postoperative ileus Current Visit: Yes Status: Acute The patient appears to have a resolving postoperative ileus, however, he remains tympanic with hypoactive bowel sounds. I would recommend continued nasogastric tube drainage as well as IV hydration at this point Subjective Narrative: The patient is seen and evaluated on morning rounds with the acute care surgery team. The patient did have a bowel movement but has hypoactive bowel sounds are remains tympanic on percussion. He was admitted yesterday with postoperative ileus after laparoscopic appendectomy. His nausea has resolved. I have recommended continued nasogastric tube drainage at this point and await further improvement in bowel activity prior to dietary trial Objective Vital Signs - Last 8 Hours Temp Pulse Resp BP Pulse Ox 01/14/19 06:26 98.4 F 85 15 156/82 94 01/14/19 03:17 97.9 F 83 16 151/79 92 Intake and Output 01/13/19 01/14/19 01/14/19 23:59 07:59 15:59 Intake Total 1150 / 2270 1150 / 1150 Output Total 725 / 1775 650 / 650 Balance 425 / 495 500 / 500 Intake: IV Fluids 1000 / 2000 1000 / 1000 0.9 % Sodium Chloride 1,000 ML 1000 / 2000 1000 / 1000 @ 100 mls/hr IVC .Q10H [facility] Rx#: [id number] Oral 150 / 270 150 / 150 Output: Urine 175 / 525 375 / 375 Gastric Drainage 550 / 1250 275 / 275 Other: Blood Glucose* 90 89 - General physical appearance well developed, well nourished, no distress, no pain, obese - Respiratory normal expansion, normal respiratory effort, clear to auscultation - Cardiovascular Cardiovascular exam: Present: RRR, no murmurs/rubs/gallops - Abdomen Abdomen: Present: bowel sounds present (Below active), distended (Tympanic to percussion) - Neurologic CN 2-12 grossly intact, normal coordination, normal sensation - Psychiatric oriented to time, oriented to person, oriented to place, speech is normal, memory intact - Labs 01/14/19 05:09 01/14/19 05:09 Diabetes panel 01/14/19 Range/Units 05:09 Sodium 146 H (136-145) mEq/L Potassium 3.6 (3.5-5.1) mEq/L Chloride 108 H (98-107) mEq/L Carbon Dioxide 24 (23-29) mEq/L BUN 14 (8-23) mg/dL Creatinine 0.96 (0.70-1.30) mg/dL Glucose 89 (70-105) mg/dL Calcium 7.2 L (8.6-10.3) mg/dL Calcium panel 01/14/19 Range/Units 05:09 Calcium 7.2 L (8.6-10.3) mg/dL Pituitary panel 01/14/19 Range/Units 05:09 Sodium 146 H (136-145) mEq/L Potassium 3.6 (3.5-5.1) mEq/L Chloride 108 H (98-107) mEq/L Carbon Dioxide 24 (23-29) mEq/L BUN 14 (8-23) mg/dL Creatinine 0.96 (0.70-1.30) mg/dL Glucose 89 (70-105) mg/dL Calcium 7.2 L (8.6-10.3) mg/dL Adrenal panel 01/14/19 Range/Units 05:09 Sodium 146 H (136-145) mEq/L Potassium 3.6 (3.5-5.1) mEq/L Chloride 108 H (98-107) mEq/L Carbon Dioxide 24 (23-29) mEq/L BUN 14 (8-23) mg/dL Creatinine 0.96 (0.70-1.30) mg/dL Glucose 89 (70-105) mg/dL Calcium 7.2 L (8.6-10.3) mg/dL Consult Discharge Plan - Plan [facility]errals: [facility] [Primary Care Provider] -
[2019-01-14] MEDS: Bisacodyl 10 MG RECTAL SUPPOSITORY RC SCH (09:36)
--- NOTE | 2019-01-14 15:56 | Acute Care Surgery Event Note ---
Date of Encounter: 01/14/19 Time of Encounter: 15:45 The patient is seen and evaluated this afternoon and he remains tympanic with very few bowel sounds. He has high nasogastric tube output. He is no longer in pain. He has no vomiting. He and his were very concerned about the diagnosis. After reviewing the x-rays, pathology, and operative notes it appears the patient has postoperative ileus. He will be started on Reglan IV and I will encourage ambulation. We cannot really remove the nasogastric tube as long as he has few bowel sounds and is tympanic on examination. His white blood cell count is normal and he does not appear to have an infection. Both small bowel and large bowel loops are dilated. Braeden Lu MD FACS
--- NOTE | 2019-01-14 18:29 | Electrocardiograph Report ---
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
[2019-01-14] MEDS: Metoclopramide 10 MG/2 ML VIAL IVP SCH (18:51)
[2019-01-15] MEDS: 0.9 % Sodium Chloride 1,000 ML IVC SCH ×3 (00:01→21:08)
[2019-01-15] MEDS: Metoclopramide 10 MG/2 ML VIAL IVP SCH ×4 (00:02→23:37)
[2019-01-15] MEDS: *HR* Heparin 5,000 UNIT/ML VIAL SQ SCH ×2 (05:35→17:12)
[2019-01-15] MEDS: Pantoprazole 40 MG VIAL IVP SCH (05:35)
[2019-01-15] MEDS: Bisacodyl 10 MG RECTAL SUPPOSITORY RC SCH (09:51)
--- NOTE | 2019-01-15 16:09 | AcuteCareSurgery Progress Note ---
Date of Encounter: 01/15/19 Time of Encounter: 14:00 - Assessment and Plan (1) Postoperative ileus Current Visit: Yes Status: Acute SBFT reveals contrast in colon at 3 hrs 20 min. Ileus is resolving. Pt reports BM. Will DC NGT and start clears. Ambulate. (2) S/P laparoscopic appendectomy Current Visit: Yes Status: Acute POD#6 (3) HTN (hypertension) Current Visit: No Status: Acute restart home meds Qualifiers: Hypertension type: essential hypertension Qualified Code(s): I10 - Essential (primary) hypertension Subjective Patient reports: feels better, still having pain, pain is less, flatus, bowel movement, afebrile Objective Vital Signs - Last 8 Hours Temp Pulse Resp BP Pulse Ox 01/15/19 15:33 97.6 F 89 16 188/90 96 01/15/19 10:39 98.0 F 92 16 177/91 96 Intake and Output 01/15/19 01/15/19 01/15/19 07:59 15:59 23:59 Intake Total 1000 / 1000 Output Total 750 / 750 Balance -750 / 250 1000 / 250 Intake: IV Fluids 1000 / 1000 0.9 % Sodium Chloride 1,000 ML 1000 / 1000 @ 100 mls/hr IVC .Q10H [facility] Rx#: [id number] Output: Urine 250 / 250 Gastric Drainage 500 / 500 Other: Stool Size Moderate Stool Consistency loose Stool Color Brown Yellow # Voids 1 # Bowel Movements 2 Blood Glucose* 78 89 - General physical appearance no distress, no pain - Eyes PERRL, normal ocular movement - ENT no congestion, dry mucosa - Neck Neck exam: trachea midline, no venous distension - Respiratory normal respiratory effort, clear to auscultation - Cardiovascular Cardiovascular exam: Present: RRR. Absent: JVD - Abdomen Abdomen: Present: bowel sounds present, soft, non tender, distended - Neurologic CN 2-12 grossly intact, normal coordination - Musculoskeletal normal posture - Psychiatric oriented to time, oriented to person, oriented to place - Labs 01/14/19 05:09 01/14/19 05:09 Consult Discharge Plan - Plan [facility]errals: [facility] [Primary Care Provider] -
[2019-01-15] MEDS ORDERED: predniSONE 10 MG TABLET PO SCH (18:00)
[2019-01-16] MEDS: *HR* Heparin 5,000 UNIT/ML VIAL SQ SCH (05:42)
[2019-01-16] MEDS: Pantoprazole 40 MG VIAL IVP SCH (05:42)
[2019-01-16] MEDS: 0.9 % Sodium Chloride 1,000 ML IVC SCH (06:54)
[2019-01-16] MEDS: Bisacodyl 10 MG RECTAL SUPPOSITORY RC SCH (08:45)
--- NOTE | 2019-01-16 09:39 | Discharge Summary ---
<Thalia Cortez Torrey - Last Filed: 01/16/19 11:18> Date of Encounter: 01/16/19 Time of Encounter: 09:40 - Discharge Diagnosis (1) Postoperative ileus Priority: Primary Status: Resolved General Surgery Exam Initial Vital Signs Temp Pulse Resp BP Pulse Ox 97.6 F 78 18 147/79 94 01/12/19 17:25 01/12/19 17:25 01/12/19 17:25 01/12/19 17:25 01/12/19 17:25 - General physical appearance well developed, well nourished, no distress - Eyes normal ocular movement - ENT normal mucosa, atraumatic, normocephalic - Neck trachea midline - Respiratory normal respiratory effort, clear to auscultation - Cardiovascular Cardiovascular exam: Present: RRR, 15, 16 - Abdomen Abdomen general surgery: Present: bowel sounds present, soft, distended - Incision Incision: Present: clean and dry, intact - Integumentary Integumentary general surgery: Present: warm and dry - Neurologic Present: CN 2-12 grossly intact - Musculoskeletal Present: normal gait, normal posture - Psychiatric Psychiatric general surgery: Present: appropriate, oriented to person, oriented to place, oriented to time, speech is normal, memory intact - Hospital Course Hospital course: Mr. Gill is a 73 year old male who is status post an appendectomy on 01/09/19. He was readmitted to the hospital with a postoperative ileus. He was treated with conservative measures including NG tube to low intermittent wall suction and bowel rest. He was also given IV fluids for hydration. The patient's ileus improved with these conservative measures. He did have a small bowel follow-through which showed movement of the contrast into his colon without difficulty. He is having flatus and bowel movements. He is tolerating full liquids without nausea or vomiting. His vital signs are stable and he is afebrile. He is voiding and ambulating without difficulty. We will begin discharge planning to home and plan for outpatient follow-up in the next 7-10 days. - Time Spent with Patient Total time spent providing and/or coordinating discharge services: Less than 30 minutes - Discharge Medications Prescriptions: Continued Clopidogrel [Plavix] 75 mg PO DAILY Simvastatin [Zocor] 80 mg PO HS Metoprolol Tartrate [Lopressor] 50 mg PO BID Cholecalciferol (Vitamin D3) [Vitamin D3] 1,000 unit PO DAILY Levothyroxine [Synthroid] 100 mcg PO DAILY Docusate Sodium [Colace] 100 mg PO BID PRN #30 capsule PRN Reason: Contstipation OxyCODONE Immed Rel [Roxicodone 5 MG] 5 mg PO Q6HR PRN 5 Days #20 tablet PRN Reason: Severe Pain Enzalutamide [Xtandi] 160 mg PO DAILY Lisinopril [Zestril] 10 mg PO DAILY Omeprazole [PriLOSEC] 20 mg PO DAILY predniSONE [PredniSONE] 10 mg PO QPM Tamsulosin [Flomax] 0.4 mg PO QPM Home Medications: Cholecalciferol (Vitamin D3) [Vitamin D3] 1,000 unit PO DAILY 05/14/17 [History] Clopidogrel [Plavix] 75 mg PO DAILY 05/14/17 [History] Levothyroxine [Synthroid] 100 mcg PO DAILY 05/14/17 [History] Metoprolol Tartrate [Lopressor] 50 mg PO BID 05/14/17 [History] Simvastatin [Zocor] 80 mg PO HS 05/14/17 [History] Docusate Sodium [Colace] 100 mg PO BID PRN #30 capsule 01/10/19 [Rx] Enzalutamide [Xtandi] 160 mg PO DAILY 01/10/19 [History] Lisinopril [Zestril] 10 mg PO DAILY 01/10/19 [History] Omeprazole [PriLOSEC] 20 mg PO DAILY 01/10/19 [History] OxyCODONE Immed Rel [Roxicodone 5 MG] 5 mg PO Q6HR PRN 5 Days #20 tablet 01/10/19 [Rx] Tamsulosin [Flomax] 0.4 mg PO QPM 01/13/19 [History] predniSONE [PredniSONE] 10 mg PO QPM 01/13/19 [History] Allergies/Adverse Reactions: Allergy/AdvReac Type Severity Reaction Status Date / Time tree nut Allergy Anaphylaxis Verified 01/10/19 10:11 Date of admission: 01/14/19 14:43 [facility] care physician: [facility] Consults: 01/12/19 20:43 Consult to Surgery [CONS] Stat Consulting Provider: Acute Care Surgery Reason for Consult: Possible SBO s/p appendectomy Time Notified: 20:44 Call Completed: No Discharging clinician: Marc Almeida (Cristiane Cortez) Anticipated date of discharge: 01/16/19 Labs on day of discharge: Labs from last 24 hours 01/15/19 01/15/19 01/14/19 11:55 05:18 23:19 POC Glucose 89 78 75 - Impressions ITS Impressions Chest/Abdomen X-ray 01/12/19 18:29 IMPRESSION: 1. Multiple dilated loops of small bowel suggestive of postoperative ileus. No free air. 2. Multifocal sclerotic osseous lesions are again identified. 3. Increasing airspace opacity in the right mid lung suspicious for pneumonia. D/ / 01/12/2019 18:41:26 Haley Valenzuela MD / charito Interpreting Provider: Haley Valenzuela MD Abdomen/Pelvis CT 01/12/19 20:19 IMPRESSION: 1. Postsurgical changes from interval appendectomy. Inflammatory changes with a small amount of fluid and extraluminal gas are noted in the right lower quadrant likely postoperative in etiology. 2. Diffusely dilated small bowel which tapers gradually towards the distal ileum. Findings favor postoperative ileus given recent appendectomy over small bowel obstruction. A partial small-bowel obstruction cannot be entirely excluded. 3. Multifocal osseous sclerotic metastases are again identified. D/ / 01/12/2019 20:39:26 Haley Valenzuela MD / charito Interpreting Provider: Haley Valenzuela MD X-Ray 01/12/19 22:16 IMPRESSION: NG tube tip and proximal side-port reside in the gastric fundus. D/ / 01/12/2019 22:29:44 Vinicius Anglin MD / charito Interpreting Provider: Vinicius Anglin MD Small Bowel X-Ray 01/15/19 13:30 IMPRESSION: There is a 3 hour and 20 minutes transit time from the contrast to the colon. There is dilated loops of small bowel which could represent ileus or partial obstruction. Continue follow-up is suggested. D/ / 01/15/2019 13:57:14 Perla Larson MD / gilma Interpreting Provider: Perla Larson MD - Patient Status Disposition: Home, Self-Care Condition: Good Functional capacity at discharge: independent ambulation Overall status at discharge: patient is progressing back to baseline - Discharge Instructions Instructions: Laparoscopic Appendectomy (DC), Ileus (DC) Follow Up With: Braeden Lu MD [Partnered Physician] - 01/29/19 9:00 am [facility] [Primary Care Provider] - Additional Instructions: Continue discharge instructions as previously recommended including no lifting, pulling, pushing greater than 20 pounds until seen in office for follow-up. Continue stool softeners and or MiraLAX daily as needed. Continue ibuprofen or Tylenol for discomfort if needed. Limit narcotic as this can exacerbate ileus. - Diet and Activity Activity: increase activity as tolerated Diet: advance to your usual diet - Attending Attestation For this encounter, I have reviewed the STICKER OPERATOR or PA documentation, treatment plan, and medical decision making; and I have had face to face time with this patient. <Marc Almeida M - Last Filed: 01/16/19 13:55> Date of Encounter: 01/16/19 - Discharge Diagnosis (1) Postoperative ileus Status: Resolved General Surgery Exam Initial Vital Signs Temp Pulse Resp BP Pulse Ox 97.6 F 78 18 147/79 94 01/12/19 17:25 01/12/19 17:25 01/12/19 17:25 01/12/19 17:25 01/12/19 17:25 - Hospital Course Hospital course: Mr. Gill is a 73 year old male - Time Spent with Patient Total time spent providing and/or coordinating discharge services: Date of admission: 01/14/19 14:43 Primary care physician: [facility] Consults: 01/12/19 20:43 Consult to Surgery [CONS] Stat Consulting Provider: Acute Care Surgery Reason for Consult: Possible SBO s/p appendectomy Time Notified: 20:44 Call Completed: No Labs on day of discharge: Labs from last 24 hours 09/01/15/19 01/14/19 11:55 05:18 23:19 POC Glucose 89 78 75 - Impressions ITS Impressions Chest/Abdomen X-ray 01/12/19 18:29 IMPRESSION: 1. Multiple dilated loops of small bowel suggestive of postoperative ileus. No free air. 2. Multifocal sclerotic osseous lesions are again identified. 3. Increasing airspace opacity in the right mid lung suspicious for pneumonia. D/ / 01/12/2019 18:41:26 Haley Valenzuela MD / charito Interpreting Provider: Haley Valenzuela MD Abdomen/Pelvis CT 01/12/19 20:19 IMPRESSION: 1. Postsurgical changes from interval appendectomy. Inflammatory changes with a small amount of fluid and extraluminal gas are noted in the right lower quadrant likely postoperative in etiology. 2. Diffusely dilated small bowel which tapers gradually towards the distal ileum. Findings favor postoperative ileus given recent appendectomy over small bowel obstruction. A partial small-bowel obstruction cannot be entirely excluded. 3. Multifocal osseous sclerotic metastases are again identified. D/ / 01/12/2019 20:39:26 Haley Valenzuela MD / charito Interpreting Provider: Haley Valenzuela MD X-Ray 01/12/19 22:16 IMPRESSION: NG tube tip and proximal side-port reside in the gastric fundus. D/ / 01/12/2019 22:29:44 Vinicius Anglin MD / charito Interpreting Provider: Vinicius Anglin MD Small Bowel X-Ray 01/15/19 13:30
[2019-01-16 10:50] VITALS: BP 148/71
== END 2019-01-16 13:55 | disposition home or self-care (01) | DRG 393 ==
LOC: EMEROOARM 17:21 → 3ANU 17:21 → OBSVTOIN 20:59 → INTOOBSV 20:59 → 3ANU 22:09
PROVIDERS: ADMIT Surgery; ATTEND Surgery